=== PATIENT | male | born 1975 | race Caucasian/White ===

== ENCOUNTER 2017-08-19 14:55 | Emergency (ER) | payer OTHER ==
[~2017-08-19] VITALS: Ht 167.6 cm; Wt 92.3 kg
[~2017-08-19 14:55] MED LIST: ARIP1TAB16 PO; CLON1TAB3 PO; DIVA500T5 PO; EPP3/2 IM; HYDR-3126 PO; HYDR-5688 PO; LTHSR/300 PO; NRN600 PO; PARO10TA3 PO; PARO1TAB PO; RANI150T2 PO; WLLSR/200 PO
[2017-08-19 15:22] VITALS: TEMP 36.4; Ht 167.6 cm; Wt 92.3 kg
[2017-08-19 15:29] LABS: BASO % 0.7 %; BASO ABS # 0.07 K/uL (0-0.2); COMPLETE YES; EOS % 6.7 %; HEMATOCRIT 47.8 % (42-52); IG% 0.2 %; LYMPH % 36.7 %; LYMPH ABS # 3.64 K/uL (1.2-3.4); MEAN CELL VOLUME 88.7 fL (80-100); MEAN CORPUSCULAR HEMOGLOBIN 32.7 pg (25-34); MEAN CORPUSCULAR HGB CONC 36.8 g/dl (32-36); MEAN PLATELET VOLUME 10.7 fL (7.4-10.4); MONO % 6.5 %; NEUT % 49.2 %; PLATELET COUNT 212 K/uL (130-400); RED BLOOD COUNT 5.39 M/uL (4.7-6.1); WHITE BLOOD COUNT 9.93 K/uL (4.8-10.8)
[2017-08-19 15:37] LABS: PROTHROMBIN TIME (PATIENT) 10.3 SECONDS (9.0-12.0)
[2017-08-19 15:47] LABS: ALT/SGPT 66 U/L (12-78); AST/SGOT 44 U/L (15-37); BLOOD UREA NITROGEN 6 mg/dl (7-18); CALCIUM 8.7 mg/dl (8.5-10.1); CARBON DIOXIDE 30 mmol/L (21-32); CHLORIDE 100 mmol/L (98-107); CREATININE 1.01 mg/dl (0.60-1.40); GLUCOSE 95 mg/dl (70-99); MAGNESIUM 1.9 mg/dl (1.8-2.4); POTASSIUM 2.9 mmol/L (3.5-5.1); SODIUM 139 mmol/L (136-145)
--- NOTE | 2017-08-19 15:51 | DIAGNOSTIC IMAGING REPORT ---
CHEST ONE VIEW PORTABLE CLINICAL HISTORY: Chest pain. Hypertension. COMPARISON STUDY: 01/02/2011 FINDINGS: The cardiac and mediastinal contours are normal. There is no evidence of focal pulmonary consolidation. There is no evidence of failure. No pleural effusions are visualized.[ There are old left-sided rib fractures. IMPRESSION: No active disease in the chest. Electronically signed by: Wiliam Raman M.D. 08/19/2017 3:49 PM Dictated Date/Time: 08/19/2017 3:49 PM
[2017-08-19 15:52] LABS: ALKALINE PHOSPHATASE 78 U/L (45-117)
[2017-08-19] MEDS ORDERED: HYDR-3983 PO (16:02)
--- NOTE | 2017-08-19 16:07 | DIAGNOSTIC IMAGING REPORT ---
HEAD WITHOUT CONTRAST (CT) CT DOSE: 679.75 mGycm HISTORY: Mental status change htn, otero, dizzy, hx chiari malformation TECHNIQUE: Multiaxial CT images of the head were performed without the use of intravenous contrast. A dose lowering technique was utilized adhering to the principles of ALARA. Comparison: 02/01/2015 Findings: Mild mucosal thickening of the ethmoid sinuses. The calvarium and skull base are intact. The ventricles and sulci are within normal limits. There is no mass, hematoma, midline shift, or acute infarct. Impression: No acute intracranial abnormality. Mild mucosal thickening of the ethmoid sinuses. The above report was generated using voice recognition software. It may contain grammatical, syntax or spelling errors. Electronically signed by: Dick Mohan M.D. 08/19/2017 4:06 PM Dictated Date/Time: 08/19/2017 4:05 PM
[2017-08-19 16:24] LABS: MANUAL MICROSCOPIC REQUIRED? NO; URINE APPEARANCE CLEAR (CLEAR); URINE BILIRUBIN NEG (NEG); URINE COLOR YELLOW; URINE NITRITE NEG (NEG); UROBILINOGEN NEG (NEG)
[2017-08-19 16:39] LABS: REVIEW REQ? NO
[2017-08-19] MEDS ORDERED: POTASSIUM CHLORIDE 10 MEQ TABCR PO STA (16:54)
[2017-08-19] MEDS ORDERED: HYDROCODONE/ACETAMOPHEN 5/325MG TAB PO STA (17:24)
--- NOTE | 2017-08-19 17:50 | EMERGENCY ROOM VISIT NOTE ---
History Report prepared by Rich: Mignon Weber Under the Supervision of: Gema PhelpsO. First contact with patient: 14:57 Stated Complaint: CHEST PAIN/HYPERTENSION History of Present Illness The patient is a 41 year old male who presents to the Emergency Room with complaints of hypertension that began this morning. The patient was being seen for a clinical appointment today, where he was found to have an elevated blood pressure with a systolic pressure of 285. He was sent here for further evaluation of a possible hypertensive crisis, where his blood pressure was determined to be normal. He notes to be experiencing chest pain that he describes as a 6/10 in intensity. The patient states he has been experiencing abnormal headaches and dizziness for the past two weeks. He also states that he has been feeling some chest "pounding" when he lays down. He denies any diarrhea. He states he has a family history of hypertension. He notes that he has been having some urinary issues, which he is being seen by a urologist by. 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 The patient admits to having a history of anxiety for which he is on Klonopin. He experiences chronic pain s/p trauma. The patient also has had previous traumatic brain injury. He notes he is an occasional smoker and chews tobacco. He states that he drinks alcohol each night, between one serving and a half gallon of bourbon. He notes that he has not been drinking as much alcohol recently. The patient notes that he ran out of Gabapentin for two weeks. Source of History: patient Onset: this morning Symptom Intensity: systolic pressure of 285 Timing: resolved Associated Symptoms: + headache, + chest pain, + back pain, + urinary symptoms, No diarrhea Review of Systems See HPI for pertinent positives & negatives. A total of 10 systems reviewed and were otherwise negative. Past Medical & Surgical Medical Problems: (1) ANXIETY STATE NOS (2) CERVICAL SYNDROME NEC (3) DEPRESSIVE DISORDER NEC (4) FAM HX-DIABETES MELLITUS (5) FAM HX-NEUROLOG DIS NEC (6) FAMILY HISTORY OF OTHER CARDIOVASCULAR DISEASES (7) FAMILY HX-CONDITION NEC (8) FAMILY HX-MALIGNANCY NOS (9) LUMBAGO (10) PANIC DISORDER WITHOUT AGORAPHOBIA (11) TOBACCO USE DISORDER Family History Diabetes mellitus FH: cancer FH: gallstones FH: heart disease FH: lung disease Hypertension Kidney disease Kidney stones Seizures Social History Smoking Status: Former Smoker Alcohol Use: none Drug Use: none Marital Status: single Housing Status: lives alone Occupation Status: employed Current/Historical Medications Scheduled Clonazepam (Klonopin), 1 MG PO TID Gabapentin (Gabapentin), 600 MG PO TID Hydrocodone/Acetaminophen 7.5MG/325MG ([place] 7.5MG/325MG), 1 TAB PO QID Hydroxyzine Hcl (Atarax), 50 MG PO TID Paroxetine HCl (Paroxetine), 10 MG PO DAILY Ranitidine HCl (Ranitidine HCl), 150 MG PO BID Scheduled PRN Epinephrine (Epipen), 0.3 MG IM UD PRN for ALLERGIC REACTION Allergies Coded Allergies: BEE STING (Unverified Allergy, Mild, 08/19/17) Zolpidem (Verified Adverse Reaction, Intermediate, "didn't sleep for a week", 08/19/17) Trazodone (Verified Adverse Reaction, Unknown, HALLUCINATIONS,DRUNK FEELING, 08/19/17) Physical Exam Vital Signs Date Time Temp Pulse Resp B/P (MAP) Pulse Ox O2 Delivery O2 Flow Rate FiO2 08/19/17 17:13 82 18 128/93 96 Room Air 08/19/17 16:17 77 18 129/91 95 Room Air 08/19/17 15:22 36.4 85 18 127/91 96 Room Air 08/19/17 15:10 82 Physical Exam GENERAL: alert, well appearing, well nourished, no distress, non-toxic EYE EXAM: normal conjunctiva, PERRL and EOM's grossly intact OROPHARYNX: no exudate, no erythema, lips, buccal mucosa, and tongue normal and mucous membranes are moist NECK: supple, no nuchal rigidity, no adenopathy, non-tender LUNGS: Clear to auscultation. Normal chest wall mechanics HEART: no murmurs, S1 normal and S2 normal ABDOMEN: abdomen soft, non-tender, normo-active bowel sounds, no masses, no rebound or guarding. BACK: Back is symmetrical on inspection and there is no deformity, no midline tenderness, no CVA tenderness. SKIN: no rashes and no bruising UPPER EXTREMITIES: upper extremities are grossly normal. LOWER EXTREMITIES: No pitting edema. Mild deformity left tibia - chronic per patient secondary to trauma. NEURO EXAM: Normal sensorium, cranial nerves II-XII grossly intact, normal speech, no gross weakness of arms, no gross weakness of legs. Medical Decision & Procedures ER Provider Diagnostic Interpretation: Radiology results have been interpreted by the radiologist and reviewed by me. CHEST ONE VIEW PORTABLE CLINICAL HISTORY: Chest pain. Hypertension. COMPARISON STUDY: 01/02/2011 FINDINGS: The cardiac and mediastinal contours are normal. There is no evidence of focal pulmonary consolidation. There is no evidence of failure. No pleural effusions are visualized.[ There are old left-sided rib fractures. IMPRESSION: No active disease in the chest. Electronically signed by: Wiliam Raman M.D. 08/19/2017 3:49 PM HEAD WITHOUT CONTRAST (CT) CT DOSE: 679.75 mGycm HISTORY: Mental status change htn, otero, dizzy, hx chiari malformation TECHNIQUE: Multiaxial CT images of the head were performed without the use of intravenous contrast. A dose lowering technique was utilized adhering to the principles of ALARA. Comparison: 02/01/2015 Findings: Mild mucosal thickening of the ethmoid sinuses. The calvarium and skull base are intact. The ventricles and sulci are within normal limits. There is no mass, hematoma, midline shift, or acute infarct. Impression: No acute intracranial abnormality. Mild mucosal thickening of the ethmoid sinuses. The above report was generated using voice recognition software. It may contain grammatical, syntax or spelling errors. Electronically signed by: Dick Mohan M.D. 08/19/2017 4:06 PM Laboratory Results 08/19/17 14:24 Red Blood Count 5.39, Mean Corpuscular Volume 88.7, Mean Corpuscular Hemoglobin 32.7, Mean Corpuscular Hemoglobin Concent 36.8, Mean Platelet Volume 10.7, Neutrophils (%) (Auto) 49.2, Lymphocytes (%) (Auto) 36.7, Monocytes (%) (Auto) 6.5, Eosinophils (%) (Auto) 6.7, Basophils (%) (Auto) 0.7, Neutrophils # (Auto) 4.88, Lymphocytes # (Auto) 3.64, Monocytes # (Auto) 0.65, Eosinophils # (Auto) 0.67, Basophils # (Auto) 0.07 08/19/17 14:24 Test 08/19/17 14:24 08/19/17 15:35 White Blood Count 9.93 K/uL (4.8-10.8) Red Blood Count 5.39 M/uL (4.7-6.1) Hemoglobin 17.6 g/dL (14.0-18.0) Hematocrit 47.8 % (42-52) Mean Corpuscular Volume 88.7 fL (80-100) Mean Corpuscular Hemoglobin 32.7 pg (25-34) Mean Corpuscular Hemoglobin Concent 36.8 g/dl (32-36) Platelet Count 212 K/uL (130-400) Mean Platelet Volume 10.7 fL (7.4-10.4) Neutrophils (%) (Auto) 49.2 % Lymphocytes (%) (Auto) 36.7 % Monocytes (%) (Auto) 6.5 % Eosinophils (%) (Auto) 6.7 % Basophils (%) (Auto) 0.7 % Neutrophils # (Auto) 4.88 K/uL (1.4-6.5) Lymphocytes # (Auto) 3.64 K/uL (1.2-3.4) Monocytes # (Auto) 0.65 K/uL (0.11-0.59) Eosinophils # (Auto) 0.67 K/uL (0-0.5) Basophils # (Auto) 0.07 K/uL (0-0.2) RDW Standard Deviation 39.6 fL (36.4-46.3) RDW Coefficient of Variation 12.5 % (11.5-14.5) Immature Granulocyte % (Auto) 0.2 % Immature Granulocyte # (Auto) 0.02 K/uL (0.00-0.02) Prothrombin Time 10.3 SECONDS (9.0-12.0) Prothromb Time International Ratio 1.0 (0.9-1.1) Anion Gap 9.0 mmol/L (3-11) Est Creatinine Clear Calc Drug Dose 104.4 ml/min Estimated GFR () 108.1 Estimated GFR (Non- 93.3 BUN/Creatinine Ratio 6.0 (10-20) Calcium Level 8.7 mg/dl (8.5-10.1) Magnesium Level 1.9 mg/dl (1.8-2.4) Total Bilirubin 1.1 mg/dl (0.2-1) Aspartate Amino Transf (AST/SGOT) 44 U/L (15-37) Alanine Aminotransferase (ALT/SGPT) 66 U/L (12-78) Alkaline Phosphatase 78 U/L (45-117) Troponin I < 0.015 ng/ml (0-0.045) Total Protein 7.9 gm/dl (6.4-8.2) Albumin 4.0 gm/dl (3.4-5.0) Globulin 3.9 gm/dl (2.5-4.0) Albumin/Globulin Ratio 1.0 (0.9-2) Urine Color YELLOW Urine Appearance CLEAR (CLEAR) Urine pH 7.0 (4.5-7.5) Urine Specific [place] 1.010 (1.000-1.030) Urine Protein NEG (NEG) Urine Glucose (UA) NEG (NEG) Urine Ketones NEG (NEG) Urine Occult Blood NEG (NEG) Urine Nitrite NEG (NEG) Urine Bilirubin NEG (NEG) Urine Urobilinogen NEG (NEG) Urine Leukocyte Esterase NEG (NEG) Laboratory results per my review. Medications Administered Medications (Trade) Dose Ordered Sig/Pricila Route Start Time Stop Time Status Last Admin Dose Admin Potassium Chloride (Klor-Con M10) 40 meq NOW STAT PO 08/19/17 16:54 08/19/17 16:55 DC 08/19/17 16:54 40 MEQ Acetaminophen/ Hydrocodone Bitart ([place] 5/325 Tab) 1 tab NOW STAT PO 08/19/17 17:24 08/19/17 17:25 DC 08/19/17 17:24 1 TAB ECG Indication: other (Hypertension) Rate (beats per minute): 77 Rhythm: normal sinus Findings: no acute ischemic change, no ectopy, other (Normal axis and intervals ) ED Course 1458: The patient was evaluated in room B2. A complete history and physical exam was performed. 1654: Ordered Klor-Con M10 40meq PO. 1724: Ordered [place] 5/325 PO. 1736: I reevaluated the patient and he was resting comfortably. 1747: Upon reevaluation, the patient is feeling better. I discussed the findings and the treatment plan with the patient. He verbalizes agreement and understanding. The patient was discharged home. Medical Decision Differential diagnosis: Etiologies such as benign hypertension, hypertensive emergency, cardiovascular pathology, pheochromocytoma, electrolyte abnormality, renal disease, endorgan damage, as well as others were entertained. Medication Reconcilliation Current Medication List: was personally reviewed by me Blood Pressure Screening Patient's blood pressure: Normal blood pressure Blood pressure disposition: Did not require urgent referral Impression Primary Impression: Hypertension Scribe Attestation The scribe's documentation has been prepared under my direction and personally reviewed by me in its entirety. I confirm that the note above accurately reflects all work, treatment, procedures, and medical decision making performed by me. Departure Information Dispostion Home / Self-Care Referrals Lio Brown D.O. (PCP) Additional Instructions Please continue your normal medications as prescribed. Please consider checking your blood pressure when you are in stores and keeping your own log. Please follow-up with your family doctor. If you have any BP readings greater than 180/100, develop chest pain, headaches, dizziness, vomiting, vision changes , trouble breathing, numbness/tingling, or you have any other new concerns, please return to the emergency room. Problem Qualifiers Primary Impression: Hypertension Hypertension type: unspecified Qualified Codes: I10 - Essential (primary) hypertension
[2017-08-19 18:15] VITALS: BP 136/98; PULSE 75; O2SAT 98
[2017-08-19 19:36] LABS: ZZUR CULT IF INDIC CLEAN CATCH NO
== END 2017-08-19 18:15 | disposition home or self-care (01) ==
LOC: EDBD 14:55 → C.EDB 14:57
DX: I10 Essential (primary) hypertension (principal); F41.0 Panic disorder [episodic paroxysmal anxiety]; Z79.899 Other long term (current) drug therapy; G89.29 Other chronic pain; M53.1 Cervicobrachial syndrome; F17.210 Nicotine dependence, cigarettes, uncomplicated; F17.220 Nicotine dependence, chewing tobacco, uncomplicated; Z87.820 Personal history of traumatic brain injury; F32.9 Major depressive disorder, single episode, unspecified; Z82.49 Family history of ischemic heart disease and other diseases of the circulatory system; Z83.3 Family history of diabetes mellitus; Z82.0 Family history of epilepsy and other diseases of the nervous system; Z80.9 Family history of malignant neoplasm, unspecified; Z84.1 Family history of disorders of kidney and ureter

== ENCOUNTER 2025-08-15 21:07 | Inpatient (IN) ==
--- NOTE | 2025-08-15 21:20 | Emergency Department Note ---
Impression & Plan Alcoholic intoxication, Transaminitis, Passive suicidal ideations ED Provider Note ED Provider Note NAME: EULALIA SIMMONS III AGE:49 SEX: Unknown/Undifferentiated : 1975 ARRIVES VIA: EMS INFORMANT: Patient ED PROVIDER(s): Reno Knowles CHIEF COMPLAINT: Suicidal ideations HPI: 49-year-old male presents emergency room with complaints of suicidal ideation. Patient states that he has been having thoughts of killing himself. States that his mother told him that he should kill himself today. States that he has been drinking alcohol and feels like everything is just going in the wrong direction and making him feel like his only option is to kill himself. PAST MEDICAL HISTORY:See Below PAST SURGICAL HISTORY:See Below FAMILY HISTORY:See Below SOCIAL HISTORY:See Below HOME MEDICATIONS:See Below ALLERGIES:See Below VITALS:See Below PHYSICAL EXAMINATION: GENERAL: alert, well appearing, well nourished, no distress, non-toxic NECK: supple, no nuchal rigidity, no adenopathy, non-tender LUNGS: Clear to auscultation. Normal chest wall mechanics, no w/r/r HEART: no murmurs, S1 normal and S2 normal ABDOMEN: abdomen soft, non-tender, normo-active bowel sounds, no masses, no rebound or guarding. BACK: Back is symmetrical on inspection and there is no deformity, no midline tenderness, no CVA tenderness. SKIN: no rashes, petechiae, orbruising UPPER EXTREMITIES: upper extremities are grossly normal. FROM, nml pulses b/l. LOWER EXTREMITIES: No pitting edema. FROM, nml pulses b/l. NEURO EXAM: Normal sensorium, Alert and oriented x 3. PSYCH: smiling and making good eye contact Vital Signs: reviewed and remarkable Differential Diagnosis: Mood disorder, infection, hypoglycemia, electrolyte abnormalities, cardiac sources, intracerebral event, toxicologic, trauma, neurologic, as well as other pathologies. MEDICAL DECISION MAKIN-year-old male presents emergency room with complaints of suicidal ideation. Patient's alcohol is over 300. He states that he has some pretty severe withdrawal symptoms with regards to tremors and shaking. He denies any history of alcohol withdrawal seizures. Psychiatric team spoke with us and asked that we admit him medically for his alcohol abuse. Spoke with hospitalist, they will admit. Spoke with patient, he is agreeable. Consultation(s): Hospitalist ER Treatment Provided: See below Diagnostics Interpreted By Me: -Laboratory studies: As stated above and show below. Triage Nursing Note Reviewed Prior/Outside Records Reviewed Past Med/Surg History Problem List (Updated 08/15/25 @ 23:10 by Maame Knowles DO) Passive suicidal ideations (Acute) Transaminitis (Acute) Alcoholic intoxication (Acute) Anxiety (Acute) Left corneal abrasion (Acute) Left corneal abrasion (Acute) Sinusitis (Acute) Throat pain (Acute) Social History Smoking Status: Former smoker Preferred Language: [place] Feels Safe at Home: No Allergies Allergies Allergy/AdvReac Type Severity Reaction Status Date / Time bee venom protein (honey bee) Allergy Mild Unverified 08/19/17 16:02 zolpidem AdvReac Intermediate "didn't Verified 08/19/17 16:02 sleep for a week" trazodone AdvReac Unknown HALLUCINATIONS,DRUNK Verified 08/19/17 16:02 FEELING Home Meds Home Medications Medication Instructions Recorded Confirmed EPINEPHRINE (EPIPEN) 0.3 mg IM UD PRN ALLERGIC REACTION 02/01/15 08/15/25 ##0 omeprazole 0 mg PO DAILY 08/15/25 08/15/25 Results & Data (ED) Vital Signs Vital Signs - 24 hr 08/15/25 22:17 Temperature 36.8 C Temperature Source Oral Pulse Rate 137 H Respiratory Rate 20 Respiratory Effort / Characteristics Non-Labored Spontaneous Respiratory Depth Normal Respiratory Pattern Regular Blood Pressure 147/95 H Blood Pressure Mean 112 Pulse Oximetry 98 Oxygen Delivery Method Room Air Sepsis Recent Fever Within 48 Hours No Sepsis New/Unexplained Change in Mental Status No Sepsis Action Taken by Nursing No Action Required Laboratory Data 08/15/25 21:25 08/15/25 21:25 Lab Results 08/15/25 Range/Units 21:25 WBC 8.66 (4.8-10.8) K/ul RBC 5.83 (4.70-6.10) M/uL Hgb 19.6 H (14.0-18.0) g/dL Hct 53.6 H (42.0-52.0) % MCV 91.9 (80.0-100.0) fL MCH 33.6 (25.0-34.0) pg MCHC 36.6 H (32.0-36.0) g/dL RDW Std Deviation 41.2 (36.4-46.3) fL RDW Coeff of [place] 12.2 (11.5-14.5) % Plt Count 218 (130-400) K/uL MPV 8.8 L (9.4-12.4) fL Immature Gran % (Auto) 0.2 % Neut % (Auto) 45.4 % Lymph % (Auto) 38.7 % [place] % (Auto) 11.9 % Eos % (Auto) 2.0 % Baso % (Auto) 1.8 % Neut # (Auto) 3.93 (1.40-6.50) K/uL Lymph # (Auto) 3.35 (1.20-3.40) K/uL [place] # (Auto) 1.03 H (0.11-0.59) K/uL Eos # (Auto) 0.17 (0.00-0.50) K/uL Baso # (Auto) 0.16 (0.00-0.20) K/uL Immature Gran # (Auto) 0.02 (0.01-0.20) K/uL Sodium 140 (136-145) mmol/L Potassium 4.3 (3.5-5.1) mmol/L Chloride 101 (98-107) mmol/L Carbon Dioxide 29 (21-32) mmol/L Anion Gap 10 (3-11) BUN 5 L (6-23) mg/dl Creatinine 0.89 (0.6-1.4) mg/dl Est Cr Clr Drug Dosing Not Reportable eGFR 106.37 BUN/Creatinine Ratio 5.6 L (10-20) Glucose 150 H (70-99(Fasting)) mg/dl Calcium 9.4 (8.6-10.3) mg/dl Total Bilirubin 1.3 H (0.2-1.0) mg/dl AST 114 H (13-39) U/L ALT 59 H (7-52) U/L Alkaline Phosphatase 101 (34-104) U/L Total Protein 8.6 H (6.0-8.3) gm/dl Albumin 4.5 (3.4-5.0) gm/dl Globulin 4.1 H (2.5-4.0) gm/dl Albumin/Globulin Ratio 1.1 (0.9-2) TSH 1.116 (0.300-4.500) uIu/ml Urine Color Dark Yellow Urine Appearance Clear (Clear) Urine pH 6.0 (4.5-7.5) Ur Specific [place] 1.012 (1.000-1.030) Urine Protein 3+ H (Negative) Urine Glucose (UA) Negative (Negative) Urine Ketones Trace H (Negative) Urine Blood Negative (Negative) Urine Nitrite Negative (Negative) Urine Bilirubin Negative (Negative) Urine Urobilinogen Negative (Negative) Ur Leukocyte Esterase Trace H (Negative) Urine WBC (Auto) 0-5 (0-5) /hpf Urine RBC (Auto) 0-2 (0-2) /hpf U Hyaline Cast (Auto) >20 H (0-2) /lpf U Epithel Cells (Auto) 6-10 H (0-2) /hpf Urine Bacteria (Auto) None Seen (None Seen) Hyaline Casts Present A (None Presnt) /lpf Granular Casts Present A (None Prsent) /lpf Urine Mucus Present A (None Prsent) Urine Comment Salicylates < 3.0 L (3.0-30) mg/dl Urine Opiates Screen Neg (Neg) Ur Methadone, Qual Neg (Neg) Urine Fentanyl Screen Neg (Neg) Acetaminophen < 3 L (10-30) ug/ml Urine Barbiturates Neg (Neg) Ur Phencyclidine (PCP) Neg (Neg) U Amphetamin/Meth Scrn Neg (Neg) MDMA (Ecstasy) Screen Neg (Neg) U Benzodiazepines Scrn Neg (Neg) Ur Cocaine Metabolite Neg (Neg) U Marijuana (THC) Screen Neg (Neg) Ethyl Alcohol mg/dL 338.2 H (<10.0) mg/dl Discharge Plan Visit Data Chief Complaint: Mental Health Evaluation Stated Complaint: 201 ED Provider: Maame Knowles Discharge Problem: Alcoholic intoxication, Transaminitis, Passive suicidal ideations Patient Disposition: Admitted As Inpatient Condition: Good Forms Stand Alone Forms: My [facility], Suicide Prevention Resources Prescriptions Prescriptions: No Action EPINEPHRINE (EPIPEN) 0.3 MG/0.3 ML INJECTION 0.3 mg IM UD PRN (Reason: ALLERGIC REACTION) Qty: 0 Rx Instructions: omeprazole 0 mg PO DAILY Referrals Referrals: PCP,NO [Primary Care Provider] -
[2025-08-15 22:02] LABS: Hematocrit (blood only) 53.6 % (42.0-52.0); Hemoglobin 19.6 g/dL (14.0-18.0); Immature Granulocytes # (auto) 0.02 K/uL (0.01-0.20); Immature Granulocytes % (auto) 0.2 %; Mean Corpuscular Hemoglobin 33.6 pg (25.0-34.0); Mean Corpuscular Volume 91.9 fL (80.0-100.0); Platelet Count 218 K/uL (130-400); RDW Standard Deviation 41.2 fL (36.4-46.3); Red Blood Count 5.83 M/uL (4.70-6.10); White Blood Count 8.66 K/ul (4.8-10.8)
[2025-08-15 22:10] LABS: Alanine Aminotransferase 59 U/L (7-52); Albumin Globulin Ratio 1.1 (0.9-2); Albumin Level 4.5 gm/dl (3.4-5.0); Alkaline Phosphatase 101 U/L (34-104); Anion Gap 10 (3-11); Bilirubin,Total 1.3 mg/dl (0.2-1.0); Blood Urea Nitrogen 5 mg/dl (6-23); Calcium 9.4 mg/dl (8.6-10.3); Carbon Dioxide 29 mmol/L (21-32); Chloride 101 mmol/L (98-107); Globulin 4.1 gm/dl (2.5-4.0); Glucose 150 mg/dl (70-99(Fasting)); Potassium 4.3 mmol/L (3.5-5.1); Sodium 140 mmol/L (136-145); Total Protein 8.6 gm/dl (6.0-8.3)
[2025-08-15 22:25] LABS: Thyroid Stimulating Hormone 1.116 uIu/ml (0.300-4.500)
[2025-08-15 22:29] LABS: Appearance Urine Clear (Clear); Bacteria Urine Automated None Seen (None Seen); Cast Urine Automated >20 /lpf (0-2); Glucose Urine UA Negative (Negative); RBC Urine Automated 0-2 /hpf (0-2); WBC Urine Automated 0-5 /hpf (0-5)
[2025-08-15 22:35] LABS: Acetaminophen < 3 ug/ml (10-30); Salicylate < 3.0 mg/dl (3.0-30)
[2025-08-15 22:56] LABS: Amphetamines+Metham, Urine Neg (Neg); MDMA (Ecstacy), Urine Neg (Neg); Marijuana, Urine Neg (Neg)
--- NOTE | 2025-08-15 23:07 | History & Physical Report ---
Date of Service August 15, 2025 Assessment & Plan (1) Suicidal ideations: Plan: Assessment and plan below following discussion of case with ED provider and reviewing patient history/pertinent normal/abnormal diagnostic test results. Suicidality History mood disorder, medication noncompliance Alcohol abuse, no prior history of alcohol withdrawal seizures as per patient hypertension, slightly elevated, patient noncompliant with previous amlodipine home Rx history of traumatic brain injury Worsening neck pain, history cervical myelopathy status post surgery ([facility] [place], 10/2024) Alcoholic hepatitis, history of hepatic steatosis as per outpatient records, likely good prognosis on Maddrey's DF score given normal coags GERD, on home PPI Noncalcified pulmonary nodules on outpatient imaging from 2018 Hyperglycemia rule out DM past tobacco abuse Admit to PCU given tachycardia Clonidine 1 dose now SANJUANA S, DT precautions Resume amlodipine in a.m. Psych consult re: suicidality One-to-one, suicide precautions until evaluated by service CT cervical spine worsening neck pain, history of surgery May benefit from specialist evaluation inpatient Outpatient chest CT for pulmonary nodules on follow-up with PCP Check hemoglobin A1c DVT prophylaxis. SCDs for now until CT cervical spine resulted Full code Patient request for her sister to be given updates regarding care. Ms. Catarina Vogel, contact #[phone]. Text document was generated using [employer] voice recognition software. It may contain grammatical or spelling errors. Kindly contact undersigned for clarification of any documentation item in question. History of Present Illness Chief Complaint: Suicidality as per records Primary Care Provider: NO PCP History obtained from patient and records. Medical history significant for hypertension, history of traumatic brain injury, cervical myelopathy status post surgery ([facility] [place], 2024), GERD, anxiety/mood disorder, alcohol abuse, pulmonary nodules, past tobacco abuse, medication noncompliance. Patient communicated self-harm intent to a friend today. Police called to check on patient. Patient brought to ER for evaluation. Denies chest pain, SOB, abdominal pain. Worsening neck pain over the last 6 months after surgery at [facility] [place] last October,. Achy neck pain radiating to both arms. Patient denies weakness, fever, chills. No bowel or bladder incontinence. Patient stopped taking blood pressure and mood medications a few years ago because he was worried about side effects. 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 Allergies Allergy/AdvReac Type Severity Reaction Status Date / Time bee venom protein (honey bee) Allergy Mild Unverified 08/19/17 16:02 zolpidem AdvReac Intermediate "didn't Verified 08/19/17 16:02 sleep for a week" trazodone AdvReac Unknown HALLUCINATIONS,DRUNK Verified 08/19/17 16:02 FEELING Home Medications Medication Instructions Recorded Confirmed Type EPINEPHRINE (EPIPEN) 0.3 mg IM UD PRN ALLERGIC REACTION 02/01/15 08/15/25 History ##0 omeprazole 0 mg PO DAILY 08/15/25 08/15/25 History Past Med/Surg History Problem List (Updated 08/16/25 @ 00:19 by Alex Michael MD) Suicidal ideations Passive suicidal ideations (Acute) Transaminitis (Acute) Alcoholic intoxication (Acute) Anxiety (Acute) Left corneal abrasion (Acute) Left corneal abrasion (Acute) Sinusitis (Acute) Throat pain (Acute) Social History Smoking Status: Former smoker Preferred Language: Romansh Feels Safe at Home: No Review of Systems Review of Systems: As per HPI, all other systems reviewed and negative Physical Exam Physical Exam: GENERAL: Anxious, restless, looks older than stated age, no respiratory distress SKIN: Normal color, multiple tattoos, warm HEENT: Partial alopecia, pink palpebral conjunctivae, no ptosis, dry buccal mucosa NECK : Some limitation in range of motion, cervical tenderness CHEST : CTA, no tenderness HEART : Tachycardic, no obvious murmurs ABDOMEN: Some distention, nontender EXTREMITIES : No LE swelling/tenderness, palpable pulses, no other conspicuous deformities noted NEUROLOGIC : Coherent, no facial asymmetry, no other gross focality Results & Data Results & Data Vital Signs (Past 12 Hours) Vital Signs Temp Pulse Resp BP Pulse Ox O2 Del Method 08/15/25 22:17 36.8 C 137 H 20 147/95 H 98 Room Air Laboratory Results Laboratory Results WBC 8.66 K/ul (4.8-10.8) 08/15/25 21:25 RBC 5.83 M/uL (4.70-6.10) 08/15/25 21:25 Hgb 19.6 g/dL (14.0-18.0) H 08/15/25: Hct 53.6 % (42.0-52.0) H 08/15/25: MCV 91.9 fL (80.0-100.0) 08/15/25: MCH 33.6 pg (25.0-34.0) 08/15/25: MCHC 36.6 g/dL (32.0-36.0) H 08/15/25 RDW Std Deviation 41.2 fL (36.4-46.3) 08/15/25 RDW Coeff of Makenzie 12.2 % (11.5-14.5) 08/15/25 Plt Count 218 K/uL (130-400) 08/15/25 MPV 8.8 fL (9.4-12.4) L 08/15/25: Immature Gran % (Auto) 0.2 % 08/15/25 Neut % (Auto) 45.4 % 08/15/25: Lymph % (Auto) 38.7 % 08/15/25: [place] % (Auto) 11.9 % 08/15/25: Eos % (Auto) 2.0 % 08/15/25 Baso % (Auto) 1.8 % 08/15/25 Neut # (Auto) 3.93 K/uL (1.40-6.50) 08/15/25 Lymph # (Auto) 3.35 K/uL (1.20-3.40) 08/15/25: [place] # (Auto) 1.03 K/uL (0.11-0.59) H 08/15/25: Eos # (Auto) 0.17 K/uL (0.00-0.50) 08/15/25: Baso # (Auto) 0.16 K/uL (0.00-0.20) 08/15/25 Immature Gran # (Auto) 0.02 K/uL (0.01-0.20) 08/15/25: Sodium 140 mmol/L (136-145) 08/15/25: Potassium 4.3 mmol/L (3.5-5.1) 08/15/25: Chloride 101 mmol/L (98-107) 08/15/25: Carbon Dioxide 29 mmol/L (21-32) 08/15/25: Anion Gap 10 (3-11) 08/15/25: BUN 5 mg/dl (6-23) L 08/15/25: Creatinine 0.89 mg/dl (0.6-1.4) 08/15/25: Est Cr Clr Drug Dosing Not Reportable 08/15/25 eGFR 106.37 08/15/25 BUN/Creatinine Ratio 5.6 (10-20) L 08/15/25: Glucose 150 mg/dl (70-99(Fasting)) H 08/15/25: Calcium 9.4 mg/dl (8.6-10.3) 08/15/25: Total Bilirubin 1.3 mg/dl (0.2-1.0) H 08/15/25: AST 114 U/L (13-39) H 08/15/25: ALT 59 U/L (7-52) H 08/15/25: Alkaline Phosphatase 101 U/L (34-104) 08/15/25 Total Protein 8.6 gm/dl (6.0-8.3) H 08/15/25: Albumin 4.5 gm/dl (3.4-5.0) 08/15/25 Globulin 4.1 gm/dl (2.5-4.0) H 08/15/25: Albumin/Globulin Ratio 1.1 (0.9-2) 08/15/25: TSH 1.116 uIu/ml (0.300-4.500) 08/15/25: Urine Color Dark Yellow 08/15/25 Urine Appearance Clear (Clear) 08/15/25: Urine pH 6.0 (4.5-7.5) 08/15/25: Ur Specific [place] 1.012 (1.000-1.030) 08/15/25: Urine Protein 3+ (Negative) H 11/16/25 21:25 Urine Glucose (UA) Negative (Negative) 08/15/25 21:25 Urine Ketones Trace (Negative) H 08/15/25 21:25 Urine Blood Negative (Negative) 08/15/25 21: Urine Nitrite Negative (Negative) 08/15/25 21:25 Urine Bilirubin Negative (Negative) 08/15/25 21:25 Urine Urobilinogen Negative (Negative) 08/15/25 21:25 Ur Leukocyte Esterase Trace (Negative) H 08/15/25 21:25 Urine WBC (Auto) 0-5 /hpf (0-5) 08/15/25 21:25 Urine RBC (Auto) 0-2 /hpf (0-2) 08/15/25 21: U Hyaline Cast (Auto) >20 /lpf (0-2) H 08/15/25 21:25 U Epithel Cells (Auto) 6-10 /hpf (0-2) H 08/15/25 21:25 Urine Bacteria (Auto) None Seen (None Seen) 08/15/25 21: Hyaline Casts Present /lpf (None Presnt) A 08/15/25 21: Granular Casts Present /lpf (None Prsent) A 08/15/25 21:25 Urine Mucus Present (None Prsent) A 08/15/25 21:25 Urine Comment 08/15/25 21:25 Salicylates < 3.0 mg/dl (3.0-30) L 08/15/25 21:25 Urine Opiates Screen Neg (Neg) 08/15/25 21:25 Ur Methadone, Qual Neg (Neg) 08/15/25 21:25 Urine Fentanyl Screen Neg (Neg) 08/15/25 21:25 Acetaminophen < 3 ug/ml (10-30) L 08/15/25 21:25 Urine Barbiturates Neg (Neg) 08/15/25 21:25 Ur Phencyclidine (PCP) Neg (Neg) 08/15/25 21:25 U Amphetamin/Meth Scrn Neg (Neg) 08/15/25 21:25 MDMA (Ecstasy) Screen Neg (Neg) 08/15/25 21:25 U Benzodiazepines Scrn Neg (Neg) 08/15/25 21:25 Ur Cocaine Metabolite Neg (Neg) 08/15/25 21:25 U Marijuana (THC) Screen Neg (Neg) 08/15/25 21:25 Ethyl Alcohol mg/dL 338.2 mg/dl (<10.0) H 08/15/25 21:25 Diagnostic Findings EKG as per my interpretation :Rate 125, sinus tachycardia, normal axis, no ischemia
[2025-08-15 23:20] LABS: Magnesium 2.4 mg/dl (1.7-2.4)
[2025-08-15 23:39] LABS: INR 1.1 (0.9-1.1); Prothrombin Time 11.4 Seconds (9.0-12.0)
[2025-08-15] MEDS ORDERED: PROMETHAZINE 6.25 MG/50.25 ML BAG IV PRN (23:50)
[2025-08-15] MEDS ORDERED: ACETAMINOPHEN 500 MG TAB PO PRN (23:50)
[2025-08-15] MEDS ORDERED: LORazepam Inj 3 MG in SYRINGE 1.5 ML IV PRN (23:51)
[2025-08-15] MEDS ORDERED: LORazepam Inj 2 MG in SYRINGE 1 ML IV PRN (23:51)
[2025-08-16] MEDS: THIAMINE HCL 100 MG in SYRINGE 9 ML IV STA (00:19)
[2025-08-16] MEDS: LACTATED RINGER'S 1,000 ML IV STA (00:57)
--- NOTE | 2025-08-16 01:09 | CT Scan Report ---
EXAM: CT cervical spine wo con CLINICAL HISTORY: pain TECHNIQUE: Computed tomography of the cervical spine performed without intravenous contrast. Contiguous axial images were obtained from the skull base to T2, with sagittal and coronal reformatted images reconstructed from the axial data. CT scan was performed according to ALARA (as low as reasonably achievable). COMPARISON: none FINDINGS: Loss of cervical lordotic curvature. Posterior disc osteophyte at C3/C4 level causing bilateral moderate neural foraminal narrowing. Prosthetic discs at C5/C6 and C6/C7 levels. Posterior osteophytes at C5/C6 and C6/C7 levels indenting anterior thecal sac.No neural foraminal narrowing. Cervical vertebral bodies are normal in height and alignment, with no evidence of fracture or subluxation. Lateral masses of C1 are symmetrical, and the dens is intact. Prevertebral soft tissues are not widened. The remaining suprahyoid and infrahyoid soft tissues in the neck are unremarkable. Thyroid gland appears unremarkable. IMPRESSION: 1. No acute fracture or subluxation in the cervical spine. 2. Loss of cervical lordosis- likely due to paraspinal muscle spasm . 3. Cervical spondylosis. Electronically signed by Bob Alejandro 08-16-2025 01:08 AM
[2025-08-16] MEDS: LORazepam 0.5 MG TAB PO PRN (04:54)
--- NOTE | 2025-08-16 04:55 | Magnetic Resonance Report ---
EXAM: MR cervical spine wo con CLINICAL HISTORY: worsening neck pain TECHNIQUE: Multiplanar multiecho MRI sequences of the cervical spine without contrast were obtained and submitted for diagnostic interpretation. Additional sagittal oblique views were taken. COMPARISON: Prior CT dated 08/14/2025 was reviewed. FINDINGS: Vertebral Alignment: Mild ventral slippage of C2 over C3 vertebra. Straightening of the cervical curvature. No evidence of fracture or subluxation. Vertebral Bodies and Intervertebral Discs: Evidence of bone marrow edema of the opposing end plates of C6-7 elicting low SI on T1, high SI on T2WI and STIR. This could represent Degenerative Modic changes type I; however possibility of associated infective/inflammatory process could not be ruled out. Diffuse spondylodegenerative changes of the cervical spine denoted by marginal osteophytosis, MODIC II degeneration of the opposing vertebral end plate of C5-6. Reduced height and bright T2 signal of the scanned discs denoting their degeneration. Anterior approach discectomy with disc spacer insertion at C5-C6 and C6-C7 intervertebral disc. No prothesis migration of collections. [id number] analysis: C2-C3: There is no focal disc pathology, spinal canal stenosis, or neural foraminal stenosis. No cord or nerve root compression. C3-C4: Bi posterolateral disc protrusions with related bone hypertrophy measuring on the right 6.3 mm and on the left 5.4mm, causing no cord compression yet with moderate bilateral, more right neural foraminal stenosis and compression of traversing nerves. C4-C5: A wide base central and left paracentral posterior disc protrusion(with left cranial migration) with related bone hypertrophy seen mildly indenting the cord, encroaching on tranversing nerves and causing mild left preforaminal/foraminal stenosis. No spinal canal stenosis. C5-C6: A wide base central and right paracentral posterior disc protrusion with related bone hypertrophy measuring about 4.4 mm on top of an asymmetric diffuse disc bulge seen indenting the cord, compressing traversing nerves, and causing bilateral neural foraminal stenosis. C6-C7: Asymmetric diffuse disc bulge with related bone hypertrophy measuring about 3.3 mm, seen mildly compressing the cord, as well as traversing nerves, and causing mild bilateral neural foraminal stenosis. C7-T1: There is no focal disc pathology, spinal canal stenosis, or neural foraminal stenosis. No cord or nerve root compression. Spinal Cord: Focal cord attenuation and right eccentric malacia opposite the C5-C6 level, termed by volume loss and by high intra-medullary T2 signals. The thoracic region shows no significant disc pathology. No exiting nerve root or spinal cord compression. Normal morphology of the ligamentum flava. No arthropathy of the uncovertebral and zygapophyseal joints. No significant spinal canal and neural foraminal stenosis. Soft Tissues: Paraspinal soft tissues appear normal without evidence of abnormal signal intensity or mass lesions. Mild atlanto-axial osteoarthritic changes. IMPRESSION: 1. Anterior approach discectomy with disc spacer insertion at C5-C6 and C6-C7 intervertebral discs. 2. 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 3. Cervical spondylosis, disc pathologies causing mild cord compression and neural foraminal stenosis, as described. 4. Evidence of bone marrow edema of the opposing end plates of C6-7, this could represent Degenerative Modic changes type I, however possibility of associated infective/inflammtory process could not be ruled out.Correlate clinically 5. First-degree degenerative spondylolithesis of the C2 vertebra 6. Mild atlanto-axial osteoarthritic changes. Electronically signed by Robbie Omalley 08-16-2025 04:55 AM
[2025-08-16 07:54] LABS: Alanine Aminotransferase 45 U/L (7-52); Albumin Globulin Ratio 1.4 (0.9-2); Albumin Level 4.1 gm/dl (3.4-5.0); Alkaline Phosphatase 75 U/L (34-104); Anion Gap 12 (3-11); Bilirubin,Total 1.4 mg/dl (0.2-1.0); Blood Urea Nitrogen 5 mg/dl (6-23); Calcium 8.8 mg/dl (8.6-10.3); Carbon Dioxide 24 mmol/L (21-32); Chloride 103 mmol/L (98-107); Creatinine Clr Calc Pharmacy 128.1 ml/min; Globulin 2.9 gm/dl (2.5-4.0); Glucose 86 mg/dl (70-99(Fasting)); Potassium 3.6 mmol/L (3.5-5.1); Sodium 139 mmol/L (136-145); Total Protein 7.0 gm/dl (6.0-8.3)
[2025-08-16 08:29] LABS: Hematocrit (blood only) 49.0 % (42.0-52.0); Hemoglobin 18.0 g/dL (14.0-18.0); Mean Corpuscular Hemoglobin 33.3 pg (25.0-34.0); Mean Corpuscular Volume 90.7 fL (80.0-100.0); Platelet Count 180 K/uL (130-400); RDW Standard Deviation 40.1 fL (36.4-46.3); Red Blood Count 5.40 M/uL (4.70-6.10); White Blood Count 10.70 K/ul (4.8-10.8)
[2025-08-16 08:37] LABS: Hemoglobin A1C 4.5 % (4.5-5.6)
[2025-08-16] MEDS: THIAMINE HCL 100 MG TAB PO SCH (09:01)
[2025-08-16] MEDS: MULTIVITAMIN TAB PO SCH (09:01)
[2025-08-16] MEDS: FOLIC ACID 1 MG TAB PO SCH (09:01)
--- NOTE | 2025-08-16 11:08 | Orthopedic Consultation ---
Date of Service August 16, 2025 Assessment & Plan (1) Status post cervical discectomy: (2) Neck pain with history of cervical spinal surgery: Plan * Case/imaging reviewed and discussed with Dr Ramirez * Recommend continued workup for possible discitis/osteomyelitis of the cervical spine, MRI with contrast pending. * Otherwise recommend conservative measures for pain control including NSAIDs, ice, PT/OT for mobilization * No surgical intervention indicated at this time * Weight bearing status: Activity as tolerated * Daily treatment: Physical Therapy/ Occupational Therapy per protocol * Pain control * Disposition: TBD * Remainder care per primary team * Will follow and update plan following MRI History of Present Illness Reason for Consultation: neck pain, abnormal MRI Requesting Physician: . Attending Physician: Andi Castellanos DO .Patient is a 49 y/o male with chronic neck pain. PMH including hypertension, history of traumatic brain injury, cervical myelopathy status post surgery ([facility] [place], [place], 2024), GERD, anxiety/mood disorder, alcohol abuse, pulmonary nodules, past tobacco abuse, medication noncompliance. Presents to hospital with suicidal ideations. During admission patient reported worsening acute on chronic neck and right shoulder pain. H/o C5-7 discectomy earlier this year at [facility] [place] [place]. 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 Orthopedics consulted for management recommendations. At time of exam patient sitting upright in bed, no acute distress. Reports constant aching pain of the base of the neck and sometimes into right shoulder blade. Denies weakness of b/l UE, tingling/numbness of b/l UE. No new falls or trauma noted. Allergies Allergy/AdvReac Type Severity Reaction Status Date / Time bee venom protein (honey bee) Allergy Mild Unverified 08/19/17 16:02 zolpidem AdvReac Intermediate "didn't Verified 08/19/17 16:02 sleep for a week" trazodone AdvReac Unknown HALLUCINATIONS,DRUNK Verified 08/19/17 16:02 FEELING Home Medications Medication Instructions Recorded Confirmed Type EPINEPHRINE (EPIPEN) 0.3 mg IM UD PRN ALLERGIC REACTION 02/01/15 08/15/25 History ##0 omeprazole 0 mg PO DAILY 08/15/25 08/15/25 History Past Med/Surg History Problem List (Updated 08/16/25 @ 11:06 by Uzair Stauffer PA-C) Neck pain with history of cervical spinal surgery Status post cervical discectomy Suicidal ideations Passive suicidal ideations (Acute) Transaminitis (Acute) Alcoholic intoxication (Acute) Anxiety (Acute) Left corneal abrasion (Acute) Left corneal abrasion (Acute) Sinusitis (Acute) Throat pain (Acute) Social History Smoking Status: Never smoker Hx Alcohol Use: Yes Alcohol type: beer Hx Substance Use: No Preferred Language: [place] [employer] Clown Required: No Beliefs That Will Affect Care: None Current Living Situation: Alone, Parent and Family Feels Safe at Home: No Is there a partner from a previous relationship who is making you feel unsafe now?: No Any Concerns about Your Family Situation: Yes Would You Like to Speak to Someone About Your Situation: Yes Safety Concerns: Feels Safe At This Time Assistive Devices: None Review of Systems All systems reviewed & are unremarkable except as noted in HPI & below. Physical Exam . * General: Alert and oriented, no acute distress * Constitutional: well-developed, well-nourished. * Respiratory: Normal respiratory effort, no distress * Gastrointestinal: No tenderness to palpation, no rigidity or guarding. * Skin: No rash or lesion. * Neurologic: Grossly normal * Musculoskeletal: Well-healed surgical incision. Otherwise cervical spine region without obvious deformity or overlying skin changes. Minimal tenderness at the base of the neck approximately C5-C7 region, otherwise no tenderness b/l UE. Neck ROM with minimal pain. AROM b/l shoulder flexion, elbow flexion/extension, wrist flexion/extension intact. Strength 5/5 bilaterally. Sensation intact radial/median/ulnar nerve distributions. Brisk capillary refill. Results & Data Results & Data Laboratory Results . 08/16/25 08/15/25 06:37 21:25 WBC 10.70 8.66 RBC 5.40 5.83 Hgb 18.0 19.6 H Hct 49.0 53.6 H MCV 90.7 91.9 MCH 33.3 33.6 MCHC 36.7 H 36.6 H RDW Std Deviation 40.1 41.2 RDW Coeff of Makenzie 12.1 12.2 Plt Count 180 218 MPV 8.8 L 8.8 L Immature Gran % (Auto) 0.2 Neut % (Auto) 45.4 Lymph % (Auto) 38.7 Vance % (Auto) 11.9 Eos % (Auto) 2.0 Baso % (Auto) 1.8 Neut # (Auto) 3.93 Lymph # (Auto) 3.35 Vance # (Auto) 1.03 H Eos # (Auto) 0.17 Baso # (Auto) 0.16 Immature Gran # (Auto) 0.02 ESR 4 PT 11.4 INR 1.1 Sodium 139 140 Potassium 3.6 4.3 Chloride 103 101 Carbon Dioxide 24 29 Anion Gap 12 H 10 BUN 5 L 5 L Creatinine 0.71 0.89 Est Cr Clr Drug Dosing 128.1 Not Reportable eGFR 113.88 106.37 BUN/Creatinine Ratio 7.0 L 5.6 L Glucose 86 150 H Estimat Average Glucose 82 Hemoglobin A1c 4.5 Calcium 8.8 9.4 Magnesium 2.4 Total Bilirubin 1.4 H 1.3 H AST 78 H 114 H ALT 45 59 H Alkaline Phosphatase 75 101 C-Reactive Protein < 0.50 Total Protein 7.0 8.6 H Albumin 4.1 4.5 Globulin 2.9 4.1 H Albumin/Globulin Ratio 1.4 1.1 TSH 1.116 Urine Color Dark Yellow Urine Appearance Clear Urine pH 6.0 Ur Specific Fromberg 1.012 Urine Protein 3+ H Urine Glucose (UA) Negative Urine Ketones Trace H Urine Blood Negative Urine Nitrite Negative Urine Bilirubin Negative Urine Urobilinogen Negative Ur Leukocyte Esterase Trace H Urine WBC (Auto) 0-5 Urine RBC (Auto) 0-2 U Hyaline Cast (Auto) >20 H U Epithel Cells (Auto) 6-10 H Urine Bacteria (Auto) None Seen Hyaline Casts Present A Granular Casts Present A Urine Mucus Present A Urine Comment Salicylates < 3.0 L Urine Opiates Screen Neg Ur Methadone, Qual Neg Urine Fentanyl Screen Neg Acetaminophen < 3 L Urine Barbiturates Neg Ur Phencyclidine (PCP) Neg U Amphetamin/Meth Scrn Neg MDMA (Ecstasy) Screen Neg U Benzodiazepines Scrn Neg Ur Cocaine Metabolite Neg U Marijuana (THC) Screen Neg Ethyl Alcohol mg/dL 338.2 H Diagnostic Findings . Cervical Spine CT 08/15/25 23:50 EXAM: CT cervical spine wo con CLINICAL HISTORY: pain TECHNIQUE: Computed tomography of the cervical spine performed without intravenous contrast. Contiguous axial images were obtained from the skull base to T2, with sagittal and coronal reformatted images reconstructed from the axial data. CT scan was performed according to ALARA (as low as reasonably achievable). COMPARISON: none FINDINGS: Loss of cervical lordotic curvature. Posterior disc osteophyte at C3/C4 level causing bilateral moderate neural foraminal narrowing. Prosthetic discs at C5/C6 and C6/C7 levels. Posterior osteophytes at C5/C6 and C6/C7 levels indenting anterior thecal sac.No neural foraminal narrowing. Cervical vertebral bodies are normal in height and alignment, with no evidence of fracture or subluxation. Lateral masses of C1 are symmetrical, and the dens is intact. Prevertebral soft tissues are not widened. The remaining suprahyoid and infrahyoid soft tissues in the neck are unremarkable. Thyroid gland appears unremarkable. IMPRESSION: 1. No acute fracture or subluxation in the cervical spine. 2. Loss of cervical lordosis- likely due to paraspinal muscle spasm . 3. Cervical spondylosis. Electronically signed by Bob Alejandro 08-16-2025 01:08 AM Cervical Spine MRI 08/16/25 01:59 EXAM: MR cervical spine wo con CLINICAL HISTORY: worsening neck pain TECHNIQUE: Multiplanar multiecho MRI sequences of the cervical spine without contrast were obtained and submitted for diagnostic interpretation. Additional sagittal oblique views were taken. COMPARISON: Prior CT dated 08/14/2025 was reviewed. FINDINGS: Vertebral Alignment: Mild ventral slippage of C2 over C3 vertebra. Straightening of the cervical curvature. No evidence of fracture or subluxation. Vertebral Bodies and Intervertebral Discs: Evidence of bone marrow edema of the opposing end plates of C6-7 elicting low SI on T1, high SI on T2WI and STIR. This could represent Degenerative Modic changes type I; however possibility of associated infective/inflammatory process could not be ruled out. Diffuse spondylodegenerative changes of the cervical spine denoted by marginal osteophytosis, MODIC II degeneration of the opposing vertebral end plate of C5-6. Reduced height and bright T2 signal of the scanned discs denoting their degeneration. Anterior approach discectomy with disc spacer insertion at C5-C6 and C6-C7 intervertebral disc. No prothesis migration of collections. [id number] analysis: C2-C3: There is no focal disc pathology, spinal canal stenosis, or neural foraminal stenosis. No cord or nerve root compression. C3-C4: Bi posterolateral disc protrusions with related bone hypertrophy measuring on the right 6.3 mm and on the left 5.4mm, causing no cord compression yet with moderate bilateral, more right neural foraminal stenosis and compression of traversing nerves. C4-C5: A wide base central and left paracentral posterior disc protrusion(with left cranial migration) with related bone hypertrophy seen mildly indenting the cord, encroaching on tranversing nerves and causing mild left preforaminal/foraminal stenosis. No spinal canal stenosis. C5-C6: A wide base central and right paracentral posterior disc protrusion with related bone hypertrophy measuring about 4.4 mm on top of an asymmetric diffuse disc bulge seen indenting the cord, compressing traversing nerves, and causing bilateral neural foraminal stenosis. C6-C7: Asymmetric diffuse disc bulge with related bone hypertrophy measuring about 3.3 mm, seen mildly compressing the cord, as well as traversing nerves, and causing mild bilateral neural foraminal stenosis. C7-T1: There is no focal disc pathology, spinal canal stenosis, or neural foraminal stenosis. No cord or nerve root compression. Spinal Cord: Focal cord attenuation and right eccentric malacia opposite the C5-C6 level, termed by volume loss and by high intra-medullary T2 signals. The thoracic region shows no significant disc pathology. No exiting nerve root or spinal cord compression. Normal morphology of the ligamentum flava. No arthropathy of the uncovertebral and zygapophyseal joints. No significant spinal canal and neural foraminal stenosis. Soft Tissues: Paraspinal soft tissues appear normal without evidence of abnormal signal intensity or mass lesions. Mild atlanto-axial osteoarthritic changes. IMPRESSION: 1. Anterior approach discectomy with disc spacer insertion at C5-C6 and C6-C7 intervertebral discs. 2. 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 3. Cervical spondylosis, disc pathologies causing mild cord compression and neural foraminal stenosis, as described. 4. Evidence of bone marrow edema of the opposing end plates of C6-7, this could represent Degenerative Modic changes type I, however possibility of associated infective/inflammtory process could not be ruled out.Correlate clinically 5. First-degree degenerative spondylolithesis of the C2 vertebra 6. Mild atlanto-axial osteoarthritic changes. Electronically signed by Robbie Omalley 08-16-2025 04:55 AM PG Care Time/CCT Total # of Minutes Spent Total Time Spent with Patient: Total time spent is greater than 50% in coordination of care (as documented) at patient's floor/unit and/or counseling patient: [place] [address] IN/OBS CONSULT LVL 3,45M Patient Type New Medical Decision Making Straight Forward Diagnoses Status post cervical discectomy Z98.890 Neck pain with history of cervical spinal surgery M54.2; Z98.890
[2025-08-16 12:14] LABS: ALC (manual) 3.85 K/uL (1.2-3.4); ANC (manual) 5.67 K/uL (1.4-6.5)
--- NOTE | 2025-08-16 12:16 | Hospitalist Progress Note ---
Date of Service August 16, 2025 Assessment & Plan (1) Suicidal ideations: Plan: 49M with PMH depression, bipolar, anxiety, alcoholism , recent cervical discectomy who presents with suicidal ideation #Suicidal ideation -Sitter present -Denies intent to harm Plan -Continue sitter -Psych consulted, appreciate input -He is no longer taking any psychiatric meds, may benefit from starting here #Neck pain -Chronic neck pain -Recent discectomy at [facility] [place] -MRI showing C5-C6 compressive myelopathy, bone marrow edema possibly from infection -No fever or leukocytosis to suggest infection Plan -Appreciate ortho-spine input -MRI with contrast pending -Observe off abx #Alcohol abuse -Drinks up to 18 beers per day -Denies history of withdrawal -Withdrawal scores low today -Continue withdrawal scoring with prn ativan #Dehydration -Clinically looks dry -Labs supporting this with elevated hgb -Sinus tachycardia likely from this + anxiety -Continue IVF for today -Encourage PO intake I spent a total of 52 minutes coordinating, documenting, and providing care for this patient excluding time spent in the performance of separately billed services. This included personally reviewing all current laboratories and imaging studies, medical reconciliation, outpatient chart review and discussion with specialists Admission and Anticipated Discharge Date Admission Date: August 15, 2025 Subjective Feeling better today. Still endorses depressed thoughts. endorsing neck pain, chronic. denies f/c headache neck stiffness chest pain dyspnea cough wheez abd pain nvd Physical Exam Physical Exam: Vitals and labs reviewed General: Well appearing, NAD HEENT: EOMI, PERRLA Neck: Supple Cardiac: RRR no rubs gallops or murmurs Lungs: CTA no rhonchi wheezing or rales Abd: S NT ND BS positive : Deffered MSK: Full ROM. No obvious deformities Ext: No Edema cyanosis Skin: Warm, Dry Neuro: AOx3 No focal deficits. mild resting tremors in UE Psych: calm Results & Data Results & Data Vital Signs (Past 12 Hours) Vital Signs Temp Pulse Pulse Resp BP BP Pulse Ox 08/16/25 08:00 36.8 C 100 H 17 145/95 H 98 08/16/25 07:30 36.9 C 116 H 149/112 H 145/111 H 95 08/16/25 04:01 37.3 C 104 H 17 133/89 96 08/16/25 03:41 122 H 08/16/25 00:50 37 C 99 H 18 148/99 H 99 08/16/25 00:32 O2 Del Method 08/16/25 08:00 Room Air 08/16/25 07:30 Room Air 08/16/25 04:01 Room Air 08/16/25 03:41 08/16/25 00:50 Room Air 08/16/25 00:32 Room Air Laboratory Results Abnormal lab results 08/15/25 08/16/25 Range/Units 21:25 06:37 Hgb 19.6 H (14.0-18.0) g/dL Hct 53.6 H (42.0-52.0) % MCHC 36.6 H 36.7 H (32.0-36.0) g/dL MPV 8.8 L 8.8 L (9.4-12.4) fL Hubbard # (Auto) 1.03 H (0.11-0.59) K/uL Anion Gap 12 H (3-11) BUN 5 L 5 L (6-23) mg/dl BUN/Creatinine Ratio 5.6 L 7.0 L (10-20) Glucose 150 H (70-99(Fasting)) mg/dl Total Bilirubin 1.3 H 1.4 H (0.2-1.0) mg/dl AST 114 H 78 H (13-39) U/L ALT 59 H (7-52) U/L Total Protein 8.6 H (6.0-8.3) gm/dl Globulin 4.1 H (2.5-4.0) gm/dl Urine Protein 3+ H (Negative) Urine Ketones Trace H (Negative) Ur Leukocyte Esterase Trace H (Negative) U Hyaline Cast (Auto) >20 H (0-2) /lpf U Epithel Cells (Auto) 6-10 H (0-2) /hpf Hyaline Casts Present A (None Presnt) /lpf Granular Casts Present A (None Prsent) /lpf Urine Mucus Present A (None Prsent) Salicylates < 3.0 L (3.0-30) mg/dl Acetaminophen < 3 L (10-30) ug/ml Ethyl Alcohol mg/dL 338.2 H (<10.0) mg/dl
[2025-08-16] MEDS: GADOBUTROL 65ML VIAL IV ONE (12:50)
--- NOTE | 2025-08-16 13:23 | Magnetic Resonance Report ---
MR cervical spine wo/w con HISTORY: 49 years-old Male abnormal marrow signal c6-7, eval for infection acute neck pain with poss ible marrow edema within the mid to lower cervical spine. Cervical spine fusion on 12/14/2024. COMPARISON: MRI cervical spine of same day at 3:13 AM, CT cervical spine of same day, MR cervical spi ne 05/24/2014 TECHNIQUE: Axial T1 noncontrast with axial and sagittal post contrast T1 images were obtained. FINDINGS: Chronic myelomalacia of the cervical spinal cord redemonstrated at C5-C6, better seen on the study fr om earlier today. There is straightening of the normal cervical lordosis along with mild multilevel i ntervertebral disc space narrowing, spondylitic spurring and facet arthrosis with small posterior poly ular disc bulging and disc osteophyte complex formation. Discectomy changes at C5-C6 and C6-C7. There is better evaluation of the central canal and neural foramina on the T2 sequences obtained earlier t johanna. Postcontrast T1 images demonstrate no abnormal enhancement or peripheral enhancing fluid collections. No intracanicular mass is seen. IMPRESSION: 1. No abnormal enhancement identified. 2. Degenerative and postoperative changes as above. 3. Chronic myelomalacia of the cervical spinal cord at C5-C6. ACT 112: Negative or not required by law. The above report was generated using voice recognition software. It may contain grammatical, syntax o r spelling errors. Electronically signed by: Reese Shahid M.D. 08/16/2025 1:21 PM
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
[2025-08-17] MEDS: LORazepam Inj 1 MG in SYRINGE 0.5 ML IV PRN (00:48)
[2025-08-17] MEDS: DIVALPROEX DELAY RELEASE 250 MG TABEC PO SCH (08:28)
--- NOTE | 2025-08-17 09:35 | Hospitalist Progress Note ---
Date of Service August 17, 2025 Assessment & Plan (1) Suicidal ideations: Plan: 49M with PMH depression, bipolar, anxiety, alcoholism , recent cervical discectomy who presents with suicidal ideation #Suicidal ideation -Sitter present -Denies intent to harm Plan -Continue sitter -Psych consulted, appreciate input -Psych started depakote 08/17 -TO [facility] when they will accept -Medically cleared for DC but [facility] requesting another 24 hours of withdrawal monitoring #Neck pain -Chronic neck pain -[place] [facility] [place] w/[place] contrast showing C5-C6 compressive myelopathy, bone marrow edema possibly from infection -No fever or leukocytosis to suggest infection -MRI w/contrast neg for infection Plan -Appreciate ortho-spine input -Observe off abx #Alcohol abuse -Drinks up to 18 beers per day -Denies history of withdrawal -Withdrawal scores low today -Continue withdrawal scoring with prn ativan #Dehydration -Resolved. Observe off IVF I spent a total of 42 minutes coordinating, documenting, and providing care for this patient excluding time spent in the performance of separately billed services. This included personally reviewing all current laboratories and imaging studies, medical reconciliation, outpatient chart review and discussion with specialists Admission and Anticipated Discharge Date Admission Date: August 15, 2025 Subjective Feeling better today. Still endorses depressed thoughts. endorsing neck pain, chronic. denies f/c headache neck stiffness chest pain dyspnea cough wheez abd pain nvd Physical Exam Physical Exam: Vitals and labs reviewed General: Well appearing, NAD HEENT: EOMI, PERRLA Neck: Supple Cardiac: RRR no rubs gallops or murmurs Lungs: CTA no rhonchi wheezing or rales Abd: S NT ND BS positive : Deffered MSK: Full ROM. No obvious deformities Ext: No Edema cyanosis Skin: Warm, Dry Neuro: AOx3 No focal deficits. mild resting tremors in UE Psych: calm Results & Data Results & Data Vital Signs (Past 12 Hours) Vital Signs Temp Pulse Pulse Resp BP BP Pulse Ox 08/17/25 07:43 36.8 C 79 19 153/100 H 161/100 H 98 08/17/25 03:48 36.8 C 81 18 148/98 H 97 08/16/25 23:34 36.7 C 83 18 148/108 H 171/113 H 95 08/16/25 23:00 81 O2 Del Method 08/17/25 07:43 Room Air 08/17/25 03:48 Room Air 08/16/25 23:34 Room Air 08/16/25 23:00 Laboratory Results Abnormal lab results 08/16/25 Range/Units 06:37 Lymphocytes # (Manual) 3.85 H (1.2-3.4) K/uL Total Abs Lymphocytes 3.85 H (1.2-3.4) K/uL Monocytes # (Manual) 1.07 H (0.11-0.59) K/uL
[2025-08-17 18:57] VITALS: O2SAT 98
--- NOTE | 2025-08-17 21:50 | Electrocardiogram Report ---
Test Reason : Blood Pressure : */* mmHG Vent. Rate : 126 BPM Atrial Rate : 126 BPM P-R Int : 128 ms QRS Dur : 90 ms QT Int : 312 ms P-R-T Axes : 16 23 4 degrees QTcB Int : 451 ms Sinus tachycardia Otherwise normal ECG When compared with ECG of 19-Aug-2017 15:08, Vent. rate has increased by 49 bpm Confirmed by Juan Ramon Luna ([id number]) on 08/17/2025 9:49:36 PM Referred By: REFERRED SELF Confirmed By: Juan Ramon Luna
[2025-08-18 07:35] VITALS: BP 162/111; RESP 17; TEMP 97.7
[2025-08-18 10:43] VITALS: PULSE 76
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
== END 2025-08-18 13:01 | DRG 897 ==
LOC: ED 21:07 → SUATTDRO 23:08 → 2S 23:08

== ENCOUNTER 2025-08-18 10:21 | Inpatient (IN) ==
[2025-08-18] MEDS ORDERED: BISMUTH SUBSALICYLATE 262 MG CHEW PO PRN (10:39)
[2025-08-18] MEDS ORDERED: MAGNESIUM HYDROXIDE SUSP 30 ML UDC PO PRN (10:39)
[2025-08-18] MEDS ORDERED: SODIUM CHLORIDE 0.65% NA SOLN 45 ML (OCEAN) PRN (10:39)
[2025-08-18] MEDS ORDERED: ALUMINUM/MAGNESIUM SUSP 30 ML UDC PO PRN (10:39)
[2025-08-18] MEDS ORDERED: ACETAMINOPHEN 325 MG TAB PO PRN (10:39)
[2025-08-18] MEDS ORDERED: LORazepam 1 MG TAB PO PRN ×2 (13:13)
[2025-08-18] MEDS: LORazepam 1 MG TAB ONE (13:33)
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
[2025-08-18] MEDS ORDERED: DIVALPROEX DELAY RELEASE 250 MG TABEC PO SCH (21:00)
[2025-08-18] MEDS: DIVALPROEX DELAY RELEASE 500 MG TAB PO SCH (22:00)
[2025-08-19] MEDS: THIAMINE HCL 100 MG TAB PO SCH (08:22)
[2025-08-19] MEDS: FOLIC ACID 1 MG TAB PO SCH (08:22)
--- NOTE | 2025-08-19 09:06 | Psychiatric Progress Note ---
Date of Service August 19, 2025 Impression / Recommendations (1) Suicidal ideations: (2) Unspecified mood [affective] disorder: (3) Bipolar affect, depressed: Plan 08/19/25: Continue AWSS protocol Continue Librium 25 mg p.o. 3 times daily continue Depakote 250 mg p.o. in the morning +500 mg p.o. at nighttime Continue suicide precautions Encourage participation in Unit programming and group activities 08/18/25: The patient was admitted to the [facility] ([facility]) on q15 min checks (behavioral with suicide precautions) for safety. The patient will participate in group, recreational, and milieu therapies and will be offered additional individual and family sessions as clinically appropriate. Start Librium 25 mg p.o.3 times daily Increase Depakote to 250 mg p.o. every morning +500 mg p.o. nightly Continue order for as needed lorazepam and according to AWSS for alcohol withdrawal Suicide Risk Level Suicide Risk Level: Moderate (q15 min suicide checks) Interval History Identifying Information EULALIA SIMMONS is a 49-year-old M who currently lives in with his mother has a history of bipolar disorder and alcohol use disorder and was admitted on 08/15/25 23:08 to the medical floor due to alcohol intoxication and risk of severe withdrawal. He was admitted to U on 08/18/25 on 201 commitment for depression, anxiety and suicidal ideation. Chief Complaint " I was afraid of the medication, or after taking it I see it makes me feel calmer." Review of Systems Sleep Information Total Hours of Sleep: 7 Meal Information Percent Meal Consumed - Dinner: 0 Subjective Subjective Patient was seen & assessed and interval progress reviewed with nursing and social work. Physical Exam Psychiatric Orientation: alert and oriented x 3 Apperance: appropriately dressed Eye Contact: good eye contact Motor Behavior: n tremor Speech: normal rate/rhythm/volume of speech Affect: + anxious affect Mood: + depressed mood; no anxious mood Thought Process: + perseveration ( less worried about catastrophic scenarios) Thought Content: + preoccupation and + self deprecation; not paranoid and no delusions Suicidal Thoughts: denies suicidal thoughts Homicidal Thoughts: denies homicidal thoughts Hallucinations: no auditory hallucinations, no visual hallucinations and no tactile hallucinations Cognition: recent memory grossly intact and remote memory grossly intact Estimated Intelligence: average estimated intelligence Insight: + fair insight Judgment: + fair judgement Vital Signs (Past 24 Hours) Last Vital Signs Temp 36.4 C 08/19/25 06:00 Pulse 78 08/19/25 06:13 Resp 16 08/19/25 06:00 BP 142/98 H 08/19/25 06:13 Pulse Ox 97 08/18/25 21:59 O2 Del Method Room Air 08/18/25 21:59 Results & Data ([facility]) Current Inpatient Medications Current Inpatient Medications: Current Inpatient Medications Acetaminophen (Acetaminophen 325 Mg Tab) 650 mg PO Q4H PRN PRN Reason: Headache or Minor Fever Stop: 09/17/25 10:38 Al Hydrox/Mg Hydrox/Simethicone (Aluminum/Magnesium Susp 30 Ml Udc) 30 ml PO Q4H PRN PRN Reason: GI Upset Stop: 09/17/25 10:38 Amlodipine Besylate (Amlodipine Besylate 5 Mg Tab) 2.5 mg PO QAM [facility] Stop: 09/18/25 08:59 Last Admin: 08/19/25 08:19 Dose: 2.5 mg Bismuth Subsalicylate (Bismuth Subsalicylate 262 Mg Chew) 2 tab PO Q30M PRN PRN Reason: Loose Stool/Diarrhea Stop: 09/17/25 10:38 Chlordiazepoxide HCl (Chlordiazepoxide Hcl 25 Mg Cap) 25 mg PO TID [facility] Stop: 09/17/25 20:59 Last Admin: 08/19/25 08:21 Dose: 25 mg Divalproex Sodium (Divalproex Delay Release 500 Mg Tab) 500 mg PO HS [facility] Stop: 09/17/25 21:59 Last Admin: 08/18/25 22:00 Dose: 500 mg Divalproex Sodium (Divalproex Delay Release 250 Mg Tabec) 250 mg PO QAM [facility] Stop: 09/18/25 09:14 Folic Acid (Folic Acid 1 Mg Tab) 1 mg PO QAM [facility] Stop: 09/18/25 08:59 Last Admin: 08/19/25 08:22 Dose: 1 mg Hydroxyzine HCl (Hydroxyzine Hcl 25 Mg Tab) 50 mg PO HSZ PRN PRN Reason: Insomnia Stop: 09/17/25 10:38 Hydroxyzine HCl (Hydroxyzine Hcl 25 Mg Tab) 25 mg PO Q4H PRN PRN Reason: Anxiety Stop: 09/17/25 10:38 Lorazepam (Lorazepam 1 Mg Tab) 1 mg PO UD PRN; Protocol PRN Reason: AWSS 6,7 (Sx Triggered) Stop: 09/17/25 13:12 Lorazepam (Lorazepam 1 Mg Tab) 2 mg PO UD PRN; Protocol PRN Reason: AWSS 8,9 (Sx Triggered) Stop: 09/17/25 13:12 Lorazepam (Lorazepam 1 Mg Tab) 3 mg PO ONCE PRN; Protocol PRN Reason: AWSS 10 & Above(Sx Triggered) Stop: 09/17/25 13:12 Magnesium Hydroxide (Magnesium Hydroxide Susp 30 Ml Udc) 30 ml PO DAILY PRN PRN Reason: Constipation Stop: 09/17/25 10:38 Pantoprazole Sodium (Pantoprazole 40 Mg Tab) 40 mg PO QAM [facility] Stop: 09/18/25 08:59 Last Admin: 08/19/25 08:42 Dose: Not Given Sodium Chloride (Sodium Chloride 0.65% Na Soln 45 Ml ([place])) 1 - 2 sprays NA PRN PRN PRN Reason: Nasal Dryness/Congestion Stop: 09/17/25 10:38 Thiamine HCl (Thiamine Hcl 100 Mg Tab) 100 mg PO QAM [facility] Stop: 09/18/25 08:59 Last Admin: 08/19/25 08:22 Dose: 100 mg
[2025-08-19] MEDS: DIVALPROEX DELAY RELEASE 250 MG TABEC PO SCH (09:36)
[2025-08-19] MEDS: LORazepam 1 MG TAB PO PRN (14:20)
--- NOTE | 2025-08-20 09:52 | Psychiatric Progress Note ---
Date of Service August 20, 2025 Impression / Recommendations Impression Psych was consulted due to patient verbalizing suicidal ideation while patient was admitted to the medical floor on 08/16/2025 for alcohol withdrawal he transition to our unit. And during the transfer his blood pressure spiked, likely a combination of residual withdrawal symptoms and severe anxiety about the change. Once on the unit he remained in his room, received Ativan per [facility] protocol. A: Patient is tolerating medications well. We are pending to assess suitability of Depakote per liver response. Labs have been ordered. He required an increase of the Librium dose yesterday. Withdrawal and anxiety better controlled today with he new dose. NOt able to taper down today. The patient's AUDIT =28 suggests dependance. Brief intervention was offered and accepted. Interventions provided on a daily basis (greater than 10 min in length) and included assessing readiness to quit, advice on how to reduce or abstain from alcohol, and to set a specific goal for this hospitalization. Patient received counseling for alcohol use disorder. Behavior change techniques (motivational/self-help counseling), He may not be a candidate for naltrexone due to liver involvement. Will wait for follow up labs. Overall, I spent a total of 45 minutes with this case, including review of chart,direct evaluation of the patient,counseling the patient,ordering medication,coordination with nursing,coordination of care with hospitalist service,risk assessment,and documentation. (1) Suicidal ideations: (2) Unspecified mood [affective] disorder: (3) Bipolar affect, depressed: Plan 08/20/25: Continue Librium 50 mg 3 times daily (dose was increased yesterday evening) Continue Depakote 250 mg p.o. every morning +500 milligrams at bedtime. CMP ordered for follow-up of liver enzymes for tomorrow and valproic acid level ordered for 1126 May benefit from propranolol for anxiety will discuss after labs are received. 08/19/25: Continue AWSS protocol Continue Librium 25 mg p.o. 3 times daily continue Depakote 250 mg p.o. in the morning +500 mg p.o. at nighttime Continue suicide precautions Encourage participation in Unit programming and group activities 08/18/25: The patient was admitted to the [facility] ([facility] unit) on q15 min checks (behavioral with suicide precautions) for safety. The patient will participate in group, recreational, and milieu therapies and will be offered additional individual and family sessions as clinically appropriate. Start Librium 25 mg p.o.3 times daily Increase Depakote to 250 mg p.o. every morning +500 mg p.o. nightly Continue order for as needed lorazepam and according to AWSS for alcohol withdrawal Suicide Risk Level Suicide Risk Level: Moderate (q15 min suicide checks) Risk Factors Assessment Do You Have Access To A Gun?: No Interval History Identifying Information EULALIA SIMMONS is a 49-year-old M who currently lives in with his mother has a history of bipolar disorder and alcohol use disorder and was admitted on 08/15/25 23:08 to the medical floor due to alcohol intoxication and risk of severe withdrawal. He was admitted to [facility] on 08/18/25 on 201 commitment for depression, anxiety and suicidal ideation. Chief Complaint "Is getting easier with the medication or not being scared." Review of Systems Sleep Information Total Hours of Sleep: 5 Meal Information Percent Meal Consumed - Breakfast: 100 Percent Meal Consumed - Lunch: 100 Percent Meal Consumed - Dinner: 100 Subjective Subjective Patient was seen & assessed and interval progress reviewed with treatment team. According to Staff, patient has been visible in the ay area, went to groups last evening. AWSS: 08/19 6pm=2 08/19 10pm=3 08/20 am=0 Patient presented calm and cooperative. Patient denied suicidal ideation today. Reported feeling less anxious in general and less worried about the side effects of the medications he is already taking. We discussed need to slowly taper off Librium. We discussed need for follow up labs including Depakote level and liver enzymes. Physical Exam Psychiatric Orientation: alert and oriented x 3 Apperance: appropriately dressed Eye Contact: good eye contact Motor Behavior: n tremor Speech: normal rate/rhythm/volume of speech Affect: + anxious affect Mood: + depressed mood; no anxious mood Thought Process: + perseveration ( less worried about catastrophic scenarios) Thought Content: + preoccupation and + self deprecation; not paranoid and no delusions Suicidal Thoughts: denies suicidal thoughts Homicidal Thoughts: denies homicidal thoughts Hallucinations: no auditory hallucinations, no visual hallucinations and no tactile hallucinations Cognition: recent memory grossly intact and remote memory grossly intact Estimated Intelligence: average estimated intelligence Insight: + limited insight Judgment: + fair judgement Vital Signs (Past 24 Hours) Last Vital Signs Temp 36.2 C L 08/20/25 06:00 Pulse 90 08/20/25 06:13 Resp 16 08/20/25 06:00 BP 123/92 08/20/25 06:13 Pulse Ox 97 08/18/25 21:59 O2 Del Method Room Air 08/18/25 21:59 Results & Data ([facility]) Current Inpatient Medications Current Inpatient Medications: Current Inpatient Medications Acetaminophen (Acetaminophen 325 Mg Tab) 650 mg PO Q4H PRN PRN Reason: Headache or Minor Fever Stop: 09/17/25 10:38 Al Hydrox/Mg Hydrox/Simethicone (Aluminum/Magnesium Susp 30 Ml Udc) 30 ml PO Q4H PRN PRN Reason: GI Upset Stop: 09/17/25 10:38 Amlodipine Besylate (Amlodipine Besylate 5 Mg Tab) 2.5 mg PO QAM [facility] Stop: 09/18/25 08:59 Last Admin: 08/20/25 08:10 Dose: 2.5 mg Bismuth Subsalicylate (Bismuth Subsalicylate 262 Mg Chew) 2 tab PO Q30M PRN PRN Reason: Loose Stool/Diarrhea Stop: 09/17/25 10:38 Chlordiazepoxide HCl (Chlordiazepoxide Hcl 25 Mg Cap) 50 mg PO TID [facility] Stop: 09/18/25 20:59 Last Admin: 08/20/25 08:28 Dose: 50 mg Divalproex Sodium (Divalproex Delay Release 500 Mg Tab) 500 mg PO HS [facility] Stop: 09/17/25 21:59 Last Admin: 08/19/25 21:55 Dose: 500 mg Divalproex Sodium (Divalproex Delay Release 250 Mg Tabec) 250 mg PO QAM [facility] Stop: 09/18/25 09:14 Last Admin: 08/20/25 08:10 Dose: 250 mg Folic Acid (Folic Acid 1 Mg Tab) 1 mg PO QAM [facility] Stop: 09/18/25 08:59 Last Admin: 08/20/25 08:10 Dose: 1 mg Hydroxyzine HCl (Hydroxyzine Hcl 25 Mg Tab) 50 mg PO HSZ PRN PRN Reason: Insomnia Stop: 09/17/25 10:38 Hydroxyzine HCl (Hydroxyzine Hcl 25 Mg Tab) 25 mg PO Q4H PRN PRN Reason: Anxiety Stop: 09/17/25 10:38 Lorazepam (Lorazepam 1 Mg Tab) 1 mg PO UD PRN; Protocol PRN Reason: AWSS 6,7 (Sx Triggered) Stop: 09/17/25 13:12 Lorazepam (Lorazepam 1 Mg Tab) 2 mg PO UD PRN; Protocol PRN Reason: AWSS 8,9 (Sx Triggered) Stop: 09/17/25 13:12 Last Admin: 08/19/25 14:20 Dose: 2 mg Lorazepam (Lorazepam 1 Mg Tab) 3 mg PO ONCE PRN; Protocol PRN Reason: AWSS 10 & Above(Sx Triggered) Stop: 09/17/25 13:12 Magnesium Hydroxide (Magnesium Hydroxide Susp 30 Ml Udc) 30 ml PO DAILY PRN PRN Reason: Constipation Stop: 09/17/25 10:38 Pantoprazole Sodium (Pantoprazole 40 Mg Tab) 40 mg PO QAM [facility] Stop: 09/18/25 08:59 Last Admin: 08/20/25 08:28 Dose: Not Given Sodium Chloride (Sodium Chloride 0.65% Na Soln 45 Ml ([place])) 1 - 2 sprays NA PRN PRN PRN Reason: Nasal Dryness/Congestion Stop: 09/17/25 10:38 Thiamine HCl (Thiamine Hcl 100 Mg Tab) 100 mg PO QAM [facility] Stop: 09/18/25 08:59 Last Admin: 08/20/25 08:10 Dose: 100 mg
[2025-08-21 08:15] LABS: Hematocrit (blood only) 43.5 % (42.0-52.0); Hemoglobin 15.7 g/dL (14.0-18.0); Immature Granulocytes # (auto) 0.03 K/uL (0.01-0.20); Immature Granulocytes % (auto) 0.4 %; Mean Corpuscular Hemoglobin 33.5 pg (25.0-34.0); Mean Corpuscular Volume 92.9 fL (80.0-100.0); Platelet Count 155 K/uL (130-400); RDW Standard Deviation 40.7 fL (36.4-46.3); Red Blood Count 4.68 M/uL (4.70-6.10); White Blood Count 6.90 K/ul (4.8-10.8)
[2025-08-21 08:30] LABS: Alanine Aminotransferase 46.0 U/L (7-52); Albumin Globulin Ratio 1.6 (0.9-2); Albumin Level 4.1 gm/dl (3.4-5.0); Alkaline Phosphatase 51.0 U/L (34-104); Anion Gap 4.0 (3-11); Bilirubin,Total 0.9 mg/dl (0.2-1.0); Blood Urea Nitrogen 11.0 mg/dl (6-23); Calcium 9.0 mg/dl (8.6-10.3); Carbon Dioxide 30.0 mmol/L (21-32); Chloride 101.0 mmol/L (98-107); Creatinine Clr Calc Pharmacy 139.4 ml/min; Globulin 2.6 gm/dl (2.5-4.0); Glucose 90.0 mg/dl (70-99(Fasting)); Potassium 4.3 mmol/L (3.5-5.1); Sodium 135.0 mmol/L (136-145); Total Protein 6.7 gm/dl (6.0-8.3)
--- NOTE | 2025-08-21 09:03 | Psychiatric Progress Note ---
Date of Service August 21, 2025 Impression / Recommendations Impression Diagnostically consistent with unspecified depression likely a combination of bipolar affective disorder type II and alcohol-induced mood symptoms as well as generalized anxiety disorder and social anxiety disorder and history of TBI. A: Depression slightly worsened in context of grief but overall improving, ongoing anxiety and he feels unsafe to discharge due to his ongoing worries about medication changes and symptoms. Labwork reviewed and reassuring for downtrending AST and normal ALT, continue with Depakote. Given longstanding anxiety discussed medication options in detail. He consents to starting gabapentin as off-label for alcohol use, nerve pain and anxiety and fluoxetine for ARIANE. Reviewed side effects including but not limited to: GI/SAMUEL with fluoxetine and potential for fatal respiratory suppression with gabapentin if combined with alcohol/sedation. Will continue with Librium taper. Significant time was spent on motivational interviewing and discussion of MAT fo r alcohol use. He declines naltrexone but wants to use gabapentin as a harm reduction strategy. Reviewed that if his drinking resumes then gabapentin will not be a safe option which he understands. Overall, I spent a total of 50 minutes on this case including meeting with the patient, reviewing the chart, nursing report, multidisciplinary team meeting, orders, and documentation. (1) Suicidal ideations: (2) Unspecified mood [affective] disorder: (3) Bipolar affect, depressed: Plan 08/21/2025: -Decrease Librium to 25mg TID tomorrow -Start fluoxetine 20mg daily tomorrow -Start gabapentin 300mg TID 08/20/25: Continue Librium 50 mg 3 times daily (dose was increased yesterday evening) Continue Depakote 250 mg p.o. every morning +500 milligrams at bedtime. CMP ordered for follow-up of liver enzymes for tomorrow and valproic acid level ordered for 08/25 May benefit from propranolol for anxiety will discuss after labs are received. 08/19/25: Continue AWSS protocol Continue Librium 25 mg p.o. 3 times daily continue Depakote 250 mg p.o. in the morning +500 mg p.o. at nighttime Continue suicide precautions Encourage participation in Unit programming and group activities 08/18/25: The patient was admitted to the [facility] ([facility] unit) on q15 min checks (behavioral with suicide precautions) for safety. The patient will participate in group, recreational, and milieu therapies and will be offered additional individual and family sessions as clinically appropriate. Start Librium 25 mg p.o.3 times daily Increase Depakote to 250 mg p.o. every morning +500 mg p.o. nightly Continue order for as needed lorazepam and according to AWSS for alcohol withdrawal Suicide Risk Level Suicide Risk Level: Moderate (q15 min suicide checks) (depression and anxiety but denies current SI and feels safe and feels able to ask for support if needed) Risk Factors Assessment Do You Have Access To A Gun?: No Family History of Suicide: Yes Interval History Identifying Information EULALIA SIMMONS is a 49-year-old M who currently lives in with his mother has a history of bipolar disorder and alcohol use disorder and was admitted on 08/15/25 23:08 to the medical floor due to alcohol intoxication and risk of severe withdrawal. He was admitted to MHU on 08/18/25 on 201 commitment for depression, anxiety and suicidal ideation. Chief Complaint "I get really anxious especially about new medications". Review of Systems Sleep Information Total Hours of Sleep: 5.75 Meal Information Percent Meal Consumed - Breakfast: 100 Percent Meal Consumed - Lunch: 100 Percent Meal Consumed - Dinner: 100 Subjective Subjective Patient was seen & assessed and interval progress reviewed with nursing. His mood was improving yesterday but then he learned that one of his snakes which acutely worsened his mood due to grief. Continues to prefer to see medications packaged before taking them. Attending all groups. Today reports ongoing anxiety but feels his depression is improving a bit. Reflects on how anxiety keeps him from wanting to go in public and keeps him from feeling able to walk inside grocery stores. He would like to consider additional medication to help with this. Discussed his alcohol use, he feels he's cut down over time and thinks he may still drink occasionally. He is not interested in naltrexone but would like to try gabapentin as he took this in the past with good benefit for his nerve pain and he is aware it's used off label for alcohol use. Physical Exam Psychiatric Orientation: alert and oriented x 3 Apperance: appropriately dressed Eye Contact: good eye contact Motor Behavior: no abnormal motor movements Speech: normal rate/rhythm/volume of speech Affect: + anxious affect Mood: + depressed mood and + anxious mood Thought Process: + circumstantial thought process Thought Content: + preoccupation and reality based without delusions Suicidal Thoughts: denies suicidal thoughts Homicidal Thoughts: denies homicidal thoughts Hallucinations: no auditory hallucinations, no visual hallucinations and no tactile hallucinations Cognition: recent memory grossly intact and remote memory grossly intact Estimated Intelligence: average estimated intelligence Insight: + limited insight Judgment: + fair judgement Vital Signs (Past 24 Hours) Last Vital Signs Temp 36.6 C 08/21/25 06:24 Pulse 64 08/21/25 06:24 Resp 16 08/21/25 06:24 BP 118/76 08/21/25 06:26 Pulse Ox 97 08/21/25 06:24 O2 Del Method Room Air 08/21/25 06:24 Results & Data ([facility]) Laboratory Results Laboratory Results - last 24 hr 08/21/25 08:00 WBC 6.90 RBC 4.68 L Hgb 15.7 Hct 43.5 MCV 92.9 MCH 33.5 MCHC 36.1 H RDW Std Deviation 40.7 RDW Coeff of Makenzie 11.9 Plt Count 155 MPV 9.1 L Immature Gran % (Auto) 0.4 Neut % (Auto) 54.7 Lymph % (Auto) 25.5 [place] % (Auto) 13.0 Eos % (Auto) 5.2 Baso % (Auto) 1.2 Neut # (Auto) 3.77 Lymph # (Auto) 1.76 [place] # (Auto) 0.90 H Eos # (Auto) 0.36 Baso # (Auto) 0.08 Immature Gran # (Auto) 0.03 Sodium 135 L Potassium 4.3 Chloride 101 Carbon Dioxide 30 Anion Gap 4 BUN 11 Creatinine 0.69 Est Cr Clr Drug Dosing 139.4 eGFR 114.87 BUN/Creatinine Ratio 15.9 Glucose 90 Calcium 9.0 Total Bilirubin 0.9 AST 51 H ALT 46 Alkaline Phosphatase 51 Total Protein 6.7 Albumin 4.1 Globulin 2.6 Albumin/Globulin Ratio 1.6 Current Inpatient Medications Current Inpatient Medications: Current Inpatient Medications Acetaminophen (Acetaminophen 325 Mg Tab) 650 mg PO Q4H PRN PRN Reason: Headache or Minor Fever Stop: 09/17/25 10:38 Al Hydrox/Mg Hydrox/Simethicone (Aluminum/Magnesium Susp 30 Ml Udc) 30 ml PO Q4H PRN PRN Reason: GI Upset Stop: 09/17/25 10:38 Amlodipine Besylate (Amlodipine Besylate 5 Mg Tab) 2.5 mg PO QAM [facility] Stop: 09/18/25 08:59 Last Admin: 08/21/25 08:46 Dose: 2.5 mg Bismuth Subsalicylate (Bismuth Subsalicylate 262 Mg Chew) 2 tab PO Q30M PRN PRN Reason: Loose Stool/Diarrhea Stop: 09/17/25 10:38 Chlordiazepoxide HCl (Chlordiazepoxide Hcl 25 Mg Cap) 50 mg PO TID [facility] Stop: 09/18/25 20:59 Last Admin: 08/21/25 08:46 Dose: 50 mg Divalproex Sodium (Divalproex Delay Release 500 Mg Tab) 500 mg PO HS JEANMARIE Stop: 09/17/25 21:59 Last Admin: 08/20/25 21:32 Dose: 500 mg Divalproex Sodium (Divalproex Delay Release 250 Mg Tabec) 250 mg PO QAM [facility] Stop: 09/18/25 09:14 Last Admin: 08/21/25 08:47 Dose: 250 mg Folic Acid ([facility] 1 Mg Tab) [facility] Stop: 09/18/25 08:59 Last Admin: 08/21/25 08:47 Dose: 1 mg Hydroxyzine HCl (Hydroxyzine Hcl 25 Mg Tab) 50 mg PO HSZ PRN PRN Reason: Insomnia Stop: 09/17/25 10:38 Hydroxyzine HCl (Hydroxyzine Hcl 25 Mg Tab) 25 mg PO Q4H PRN PRN Reason: Anxiety Stop: 09/17/25 10:38 Lorazepam (Lorazepam 1 Mg Tab) 1 mg PO UD PRN; Protocol PRN Reason: AWSS 6,7 (Sx Triggered) Stop: 09/17/25 13:12 Lorazepam (Lorazepam 1 Mg Tab) 2 mg PO UD PRN; Protocol PRN Reason: AWSS 8,9 (Sx Triggered) Stop: 09/17/25 13:12 Last Admin: 08/19/25 14:20 Dose: 2 mg Lorazepam (Lorazepam 1 Mg Tab) 3 mg PO ONCE PRN; Protocol PRN Reason: AWSS 10 & Above(Sx Triggered) Stop: 09/17/25 13:12 Magnesium Hydroxide (Magnesium Hydroxide Susp 30 Ml Udc) 30 ml PO DAILY PRN PRN Reason: Constipation Stop: 09/17/25 10:38 Pantoprazole Sodium (Pantoprazole 40 Mg Tab) 40 mg PO QAM [facility] Stop: 09/18/25 08:59 Last Admin: 08/21/25 08:52 Dose: Not Given Sodium Chloride (Sodium Chloride 0.65% Na Soln 45 Ml ([place])) 1 - 2 sprays NA PRN PRN PRN Reason: Nasal Dryness/Congestion Stop: 09/17/25 10:38 Thiamine HCl (Thiamine Hcl 100 Mg Tab) [facility] Stop: 09/18/25 08:59 Last Admin: 08/21/25 08:47 Dose: 100 mg
[2025-08-21] MEDS: GABAPENTIN 300 MG CAP PO SCH (21:11)
--- NOTE | 2025-08-22 07:55 | Psychiatric Progress Note ---
Date of Service August 22, 2025 Impression / Recommendations Impression Diagnostically consistent with unspecified depression likely a combination of bipolar affective disorder type II and alcohol-induced mood symptoms as well as generalized anxiety disorder and social anxiety disorder and history of TBI. A: Mood improving, he is tolerating initiation of fluoxetine so far. Ongoing [place] regarding his alcohol use. He's considering living with a friend after spending a short amount of time at his mother's. He consents to ongoing Librium taper to discontinuation. He has no aftercare so SW to explore therapy and psychiatry referral options. Depakote level tomorrow AM. Overall, I spent a total of 35 minutes on this case including meeting with the patient, reviewing the chart, nursing report, multidisciplinary team meeting, orders, and documentation. (1) Suicidal ideations: (2) Unspecified mood [affective] disorder: (3) Bipolar affect, depressed: Plan 08/22/2025: -Discontinue Librium after HS dose tonight. 08/21/2025: -Decrease Librium to 25mg TID tomorrow -Start fluoxetine 20mg daily tomorrow -Start gabapentin 300mg TID 08/20/25: Continue Librium 50 mg 3 times daily (dose was increased yesterday evening) Continue Depakote 250 mg p.o. every morning +500 milligrams at bedtime. CMP ordered for follow-up of liver enzymes for tomorrow and valproic acid level ordered for 08/25 May benefit from propranolol for anxiety will discuss after labs are received. 08/19/25: Continue AWSS protocol Continue Librium 25 mg p.o. 3 times daily continue Depakote 250 mg p.o. in the morning +500 mg p.o. at nighttime Continue suicide precautions Encourage participation in Unit programming and group activities 08/18/25: The patient was admitted to the [facility] ([facility] mental health unit) on q15 min checks (behavioral with suicide precautions) for safety. The patient will participate in group, recreational, and milieu therapies and will be offered additional individual and family sessions as clinically appropriate. Start Librium 25 mg p.o.3 times daily Increase Depakote to 250 mg p.o. every morning +500 mg p.o. nightly Continue order for as needed lorazepam and according to AWSS for alcohol withdrawal Suicide Risk Level Suicide Risk Level: Moderate (q15 min suicide checks) (depression and anxiety but denies current SI and feels safe and feels able to ask for support if needed) Risk Factors Assessment Do You Have Access To A Gun?: No Family History of Suicide: Yes Interval History Identifying Information EULALIA SIMMONS is a 49-year-old M who currently lives in with his mother has a history of bipolar disorder and alcohol use disorder and was admitted on 08/15/25 23:08 to the medical floor due to alcohol intoxication and risk of severe withdrawal. He was admitted to MHU on 08/18/25 on 201 commitment for depression, anxiety and suicidal ideation. Chief Complaint "Doing ok". Review of Systems Sleep Information Total Hours of Sleep: 11 Meal Information Percent Meal Consumed - Breakfast: 100 Percent Meal Consumed - Lunch: 100 Percent Meal Consumed - Dinner: 100 Subjective Subjective Patient was seen & assessed and interval progress reviewed with nursing and social work. Out of his room, interactive with peers. Had a good visit with his sister, she feels his anxiety is much better under control. Today reports having some anxiety about taking new medications but overall feels "relaxed". He denies SI but still has thoughts about passive SI sometimes. He worries that his anxiety will worsen once Librium is discontinued and that he won't know how to cope if he's outside of the hospital. He'd prefer a more rapid taper so he can see how he feels on the Depakote, fluoxetine and gabapentin before returning home. Denies any medication side effects. Slept well last night. Physical Exam Psychiatric Orientation: alert and oriented x 3 Apperance: appropriately dressed Eye Contact: good eye contact Motor Behavior: no abnormal motor movements Speech: normal rate/rhythm/volume of speech Affect: + anxious affect Mood: + anxious mood Thought Process: + circumstantial thought process Thought Content: + preoccupation and reality based without delusions Suicidal Thoughts: denies suicidal thoughts (intermittent passive ), denies suicidal plan and denies suicidal intent Homicidal Thoughts: denies homicidal thoughts Hallucinations: no auditory hallucinations, no visual hallucinations and no tactile hallucinations Cognition: recent memory grossly intact and remote memory grossly intact Estimated Intelligence: average estimated intelligence Insight: + limited insight Judgment: + fair judgement Vital Signs (Past 24 Hours) Last Vital Signs Temp 36.6 C 08/21/25 14:20 Pulse 71 08/22/25 06:20 Resp 16 08/22/25 06:20 BP 120/77 08/22/25 06:22 Pulse Ox 96 08/22/25 06:20 O2 Del Method Room Air 08/22/25 06:20 Results & Data ([facility]) Laboratory Results Laboratory Results - last 24 hr 08/21/25 08:00 WBC 6.90 RBC 4.68 L Hgb 15.7 Hct 43.5 MCV 92.9 MCH 33.5 MCHC 36.1 H RDW Std Deviation 40.7 RDW Coeff of Makenzie 11.9 Plt Count 155 MPV 9.1 L Immature Gran % (Auto) 0.4 Neut % (Auto) 54.7 Lymph % (Auto) 25.5 [place] % (Auto) 13.0 Eos % (Auto) 5.2 Baso % (Auto) 1.2 Neut # (Auto) 3.77 Lymph # (Auto) 1.76 [place] # (Auto) 0.90 H Eos # (Auto) 0.36 Baso # (Auto) 0.08 Immature Gran # (Auto) 0.03 Sodium 135 L Potassium 4.3 Chloride 101 Carbon Dioxide 30 Anion Gap 4 BUN 11 Creatinine 0.69 Est Cr Clr Drug Dosing 139.4 eGFR 114.87 BUN/Creatinine Ratio 15.9 Glucose 90 Calcium 9.0 Total Bilirubin 0.9 AST 51 H ALT 46 Alkaline Phosphatase 51 Total Protein 6.7 Albumin 4.1 Globulin 2.6 Albumin/Globulin Ratio 1.6 Current Inpatient Medications Current Inpatient Medications: Current Inpatient Medications Acetaminophen (Acetaminophen 325 Mg Tab) 650 mg PO Q4H PRN PRN Reason: Headache or Minor Fever Stop: 09/17/25 10:38 Al Hydrox/Mg Hydrox/Simethicone (Aluminum/Magnesium Susp 30 Ml Udc) 30 ml PO Q4H PRN PRN Reason: GI Upset Stop: 09/17/25 10:38 Amlodipine Besylate (Amlodipine Besylate 5 Mg Tab) 2.5 mg PO QAM JEANMARIE Stop: 09/18/25 08:59 Last Admin: 08/21/25 08:46 Dose: 2.5 mg Bismuth Subsalicylate (Bismuth Subsalicylate 262 Mg Chew) 2 tab PO Q30M PRN PRN Reason: Loose Stool/Diarrhea Stop: 09/17/25 10:38 Chlordiazepoxide HCl (Chlordiazepoxide Hcl 25 Mg Cap) 25 mg PO TID JEANMARIE Stop: 09/20/25 20:59 Last Admin: 08/21/25 21:11 Dose: 25 mg Divalproex Sodium (Divalproex Delay Release 500 Mg Tab) 500 mg PO HS JEANMARIE Stop: 09/17/25 21:59 Last Admin: 08/21/25 21:11 Dose: 500 mg Divalproex Sodium (Divalproex Delay Release 250 Mg Tabec) 250 mg PO QAM JEANMARIE Stop: 09/18/25 09:14 Last Admin: 08/21/25 08:47 Dose: 250 mg Fluoxetine HCl (Fluoxetine Hcl 20 Mg Cap) 20 mg PO QAM [facility] Stop: 09/21/25 08:59 Folic Acid (Folic Acid 1 Mg Tab) 1 mg PO QAM [facility] Stop: 09/18/25 08:59 Last Admin: 08/21/25 08:47 Dose: 1 mg Gabapentin (Gabapentin 300 Mg Cap) 300 mg PO TID JEANMARIE Stop: 09/20/25 20:59 Last Admin: 08/21/25 21:11 Dose: 300 mg Hydroxyzine HCl (Hydroxyzine Hcl 25 Mg Tab) 50 mg PO HSZ PRN PRN Reason: Insomnia Stop: 09/17/25 10:38 Hydroxyzine HCl (Hydroxyzine Hcl 25 Mg Tab) 25 mg PO Q4H PRN PRN Reason: Anxiety Stop: 09/17/25 10:38 Lorazepam (Lorazepam 1 Mg Tab) 1 mg PO UD PRN; Protocol PRN Reason: AWSS 6,7 (Sx Triggered) Stop: 09/17/25 13:12 Lorazepam (Lorazepam 1 Mg Tab) 2 mg PO UD PRN; Protocol PRN Reason: AWSS 8,9 (Sx Triggered) Stop: 09/17/25 13:12 Last Admin: 08/19/25 14:20 Dose: 2 mg Lorazepam (Lorazepam 1 Mg Tab) 3 mg PO ONCE PRN; Protocol PRN Reason: AWSS 10 & Above(Sx Triggered) Stop: 09/17/25 13:12 Magnesium Hydroxide (Magnesium Hydroxide Susp 30 Ml Udc) 30 ml PO DAILY PRN PRN Reason: Constipation Stop: 09/17/25 10:38 Pantoprazole Sodium (Pantoprazole 40 Mg Tab) 40 mg PO QAM [facility] Stop: 09/18/25 08:59 Last Admin: 08/21/25 08:52 Dose: Not Given Sodium Chloride (Sodium Chloride 0.65% Na Soln 45 Ml ([place])) 1 - 2 sprays NA PRN PRN PRN Reason: Nasal Dryness/Congestion Stop: 09/17/25 10:38 Thiamine HCl (Thiamine Hcl 100 Mg Tab) 100 mg PO QAM [facility] Stop: 09/18/25 08:59 Last Admin: 08/21/25 08:47 Dose: 100 mg
[2025-08-22] MEDS: NICOTINE POLACRILEX 2 MG GUM MT PRN (21:59)
[2025-08-23 07:04] VITALS: O2SAT 97
--- NOTE | 2025-08-23 08:40 | Psychiatric Progress Note ---
Date of Service August 23, 2025 Impression / Recommendations Impression Diagnostically consistent with unspecified depression likely a combination of bipolar affective disorder type II and alcohol-induced mood symptoms as well as generalized anxiety disorder and social anxiety disorder and history of TBI. A: Mood continues to improve. Tolerating medications without side effects. Depakote level reasonable for ongoing use for mood stabilization, could be i ncreased in the future if needed. Ongoing NH regarding his alcohol use, he is motivated to cut down on his use but doesn't feel motivated to stop drinking completely. Ongoing discussions about psychoeducation of addiction and difficulty of moderation. He is not interested in residential substance use treatment. He feels safe but worries about his anxiety increasing after discharge but feels it is well controlled in the hospital. Overall, I spent a total of 36 minutes on this case including meeting with the patient, reviewing the chart, nursing report, multidisciplinary team meeting, orders, and documentation. (1) Unspecified mood [affective] disorder: (2) Bipolar affect, depressed: (3) ARIANE (generalized anxiety disorder): (4) Social anxiety disorder: (5) Alcohol use disorder: (6) Post traumatic stress disorder (PTSD): Plan 08/23/2025: -Librium 10mg TID prn for alcohol withdrawal symptoms 08/22/2025: -Discontinue Librium after HS dose tonight. 08/21/2025: -Decrease Librium to 25mg TID tomorrow -Start fluoxetine 20mg daily tomorrow -Start gabapentin 300mg TID 08/20/25: Continue Librium 50 mg 3 times daily (dose was increased yesterday evening) Continue Depakote 250 mg p.o. every morning +500 milligrams at bedtime. CMP ordered for follow-up of liver enzymes for tomorrow and valproic acid level ordered for 08/25 May benefit from propranolol for anxiety will discuss after labs are received. 08/19/25: Continue AWSS protocol Continue Librium 25 mg p.o. 3 times daily continue Depakote 250 mg p.o. in the morning +500 mg p.o. at nighttime Continue suicide precautions Encourage participation in Unit programming and group activities 08/18/25: The patient was admitted to the [facility]) on q15 min checks (behavioral with suicide precautions) for safety. The patient will participate in group, recreational, and milieu therapies and will be offered additional individual and family sessions as clinically appropriate. Start Librium 25 mg p.o.3 times daily Increase Depakote to 250 mg p.o. every morning +500 mg p.o. nightly Continue order for as needed lorazepam and according to AWSS for alcohol withdrawal Suicide Risk Level Suicide Risk Level: Moderate (q15 min suicide checks) (mood improving, denies current SI and feels safe and feels able to ask for support if needed) Risk Factors Assessment Do You Have Access To A Gun?: No Family History of Suicide: Yes Interval History Identifying Information EULALIA SIMMONS is a 49-year-old M who currently lives in with his mother has a history of bipolar disorder and alcohol use disorder and was admitted on 08/15/25 23:08 to the medical floor due to alcohol intoxication and risk of severe withdrawal. He was admitted to [facility] on 08/18/25 on 201 commitment for depression, anxiety and suicidal ideation. Chief Complaint "OK, up and down". Review of Systems Sleep Information Total Hours of Sleep: 5 Meal Information Percent Meal Consumed - Breakfast: 100 Percent Meal Consumed - Lunch: 100 Percent Meal Consumed - Dinner: 100 Subjective Subjective Patient was seen & assessed and interval progress reviewed with treatment team. Rated his mood "comfortable" last evening. Attending groups. Today reports his mood is "up and down" but improving and "I'm very comfortable here". he reflects on how much his anxiety has lessened over this admission. He denies any medication side effects. Denies SI. Required dose of prn Librium mid- morning for elevated BP and slight shakiness which he found very effective, no further symptoms since. Reviewed that this remains available if needed. Reviewed Depakote level, he's comfortable with current dose. Physical Exam Psychiatric Orientation: alert and oriented x 3 Apperance: appropriately dressed Eye Contact: good eye contact Motor Behavior: no abnormal motor movements Speech: normal rate/rhythm/volume of speech Affect: euthymic affect Mood: + anxious mood Thought Process: + circumstantial thought process Thought Content: reality based without delusions Suicidal Thoughts: denies suicidal thoughts, denies suicidal plan and denies suicidal intent Homicidal Thoughts: denies homicidal thoughts Hallucinations: no auditory hallucinations, no visual hallucinations and no tactile hallucinations Cognition: recent memory grossly intact and remote memory grossly intact Estimated Intelligence: average estimated intelligence Insight: + fair insight Judgment: + fair judgement Vital Signs (Past 24 Hours) Last Vital Signs Temp 36.7 C 08/23/25 07:02 Pulse 103 H 08/23/25 07:03 Resp 20 08/23/25 07:02 BP 115/78 08/23/25 07:03 Pulse Ox 97 08/23/25 07:02 O2 Del Method Room Air 08/23/25 07:02 Results & Data ([facility]) Laboratory Results Laboratory Results - last 24 hr 08/23/25 07:59 Valproic Acid Pending Current Inpatient Medications Current Inpatient Medications: Current Inpatient Medications Acetaminophen (Acetaminophen 325 Mg Tab) 650 mg PO Q4H PRN PRN Reason: Headache or Minor Fever Stop: 09/17/25 10:38 Al Hydrox/Mg Hydrox/Simethicone (Aluminum/Magnesium Susp 30 Ml Udc) 30 ml PO Q4H PRN PRN Reason: GI Upset Stop: 09/17/25 10:38 Amlodipine Besylate (Amlodipine Besylate 5 Mg Tab) 2.5 [facility] [place] Stop: 09/18/25 08:59 Last Admin: 08/22/25 08:10 Dose: 2.5 mg Bismuth Subsalicylate (Bismuth Subsalicylate 262 Mg Chew) 2 tab PO Q30M PRN PRN Reason: Loose Stool/Diarrhea Stop: 09/17/25 10:38 Chlordiazepoxide HCl (Chlordiazepoxide Hcl 5 Mg Cap) 10 mg PO BID PRN PRN Reason: alcohol withdrawal symptoms Stop: 09/21/25 13:56 Divalproex Sodium (Divalproex Delay Release 500 Mg Tab) 500 mg PO [facility] Stop: 09/17/25 21:59 Last Admin: 08/22/25 21:21 Dose: 500 mg Divalproex Sodium (Divalproex Delay Release 250 Mg Tabec) 250 mg PO QAM [facility] Stop: 09/18/25 09:14 Last Admin: 08/22/25 08:11 Dose: 250 mg Fluoxetine HCl (Fluoxetine Hcl 20 Mg Cap) 20 mg PO QAM [facility] Stop: 09/21/25 08:59 Last Admin: 08/22/25 08:11 Dose: 20 mg Folic Acid (Folic Acid 1 Mg Tab) 1 mg [facility] [place] Stop: 09/18/25 08:59 Last Admin: 08/22/25 08:11 Dose: 1 mg Gabapentin (Gabapentin 300 Mg Cap) 300 mg PO TID JEANMARIE Stop: 09/20/25 20:59 Last Admin: 08/22/25 21:21 Dose: 300 mg Hydroxyzine HCl (Hydroxyzine Hcl 25 Mg Tab) 50 mg PO HSZ PRN PRN Reason: Insomnia Stop: 09/17/25 10:38 Hydroxyzine HCl (Hydroxyzine Hcl 25 Mg Tab) 25 mg PO Q4H PRN PRN Reason: Anxiety Stop: 09/17/25 10:38 Magnesium Hydroxide (Magnesium Hydroxide Susp 30 Ml Udc) 30 ml PO DAILY PRN PRN Reason: Constipation Stop: 09/17/25 10:38 Nicotine Polacrilex (Nicotine Polacrilex 2 Mg Gum) 1 - 2 piece MT Q2H PRN PRN Reason: smoking cessation Stop: 09/21/25 21:33 Last Admin: 08/23/25 07:43 Dose: 1 piece Pantoprazole Sodium (Pantoprazole 40 Mg Tab) 40 mg PO QAM [facility] Stop: 09/18/25 08:59 Last Admin: 08/22/25 08:18 Dose: Not Given Sodium Chloride (Sodium Chloride 0.65% Na Soln 45 Ml ([place])) 1 - 2 sprays NA PRN PRN PRN Reason: Nasal Dryness/Congestion Stop: 09/17/25 10:38 Thiamine HCl (Thiamine Hcl 100 Mg Tab) 100 mg PO QAM JEANMARIE Stop: 09/18/25 08:59 Last Admin: 08/22/25 08:12 Dose: 100 mg
[2025-08-24 06:27] VITALS: RESP 18; TEMP 97.7
--- NOTE | 2025-08-24 08:42 | Discharge Summary ---
Date of Service August 24, 2025 History of Present Illness Patient with a history of severe childhood trauma, anxiety, and depression. Carries a diagnosis of bipolar 2 disorder. Did not provide clear history of hypomania but described poor tolerance to regular antidepressants. Successfully treated with mood stabilizers in the past. Patient indicated he has a long history of mood fluctuations, impulsivity, episodes of severe depression, and anxiety. His drinking behavior has escalated recently. Patient also TBI and reportedly an Arnold-Chiari malformation with chronic cervical spine pain and headaches. He agreed to a trial of low-dose Depakote. Patient was started on Depakote 250 mg twice daily before transitioning to U and agreed to increase to 250 mg in the morning +500 mg at bedtime today. Although suicidal ideation is passive (no active plan), patient has many risk factors and minimal protective factors. Recommend continuing one-to-one sitter until transferred to . Patient presents cooperative but apprehensive when offered treatment recommendations. He is apologetic for his own worries and anxieties regarding medication. Denied auditory or visual hallucinations. There is no evidence of agitation or aggressive behavior. Physical Exam Vital Signs (Past 24 Hours) Last Vital Signs Temp 36.5 C 08/24/25 06:00 Pulse 85 08/24/25 06:01 Resp 18 08/24/25 06:00 BP 114/67 08/24/25 06:01 Pulse Ox 97 08/24/25 06:00 O2 Del Method Room Air 08/24/25 06:00 Principal Diagnosis Bipolar Affective Disorder Type II, current depressive episode Psychiatric Data See daily stay summary. In short, patient was engaged with the social/therapeutic milieu of the unit, safety was maintained and the patient was cooperative with care. Medication changes included initiation of Depakote for mood stabilization, fluoxetine for depression and anxiety, gabapentin for off-la bel use for anxiety and alcohol use and they tolerated this well. Baseline labs of CBC with diff, LFTs, electrolytes and weight were preformed and WNL. Depakote level at discharge was 43. Recommend repeat CBC with diff, and LFTs at one month. Then CBC with diff, depakote level, and LFTs annually or anytime symptoms arise. A support session was held and safety plan was completed prior to discharge. They participated in safety planning and in discussions about ways to seek support and recognizing warning signs and utilizing coping skills. Reviewed ways to have their safety plan and contacts easily available should thoughts of SI re-emerge in the future. Reviewed importance of seeking emergency care should SI intensify, worsen or should they feel unsafe in the future which they agree to d o. On the day of discharge they stated their mood was "anxious but ready" and remained future-oriented including spending time with family, seeing his friend, getting some fresh air, relaxing and engaging in aftercare appointments for psychiatry and therapy. Day of Discharge Assessment Today the patient voices readiness for discharge. They note improvement in mood and anxiety. They deny thoughts of harm to self or others. Thoughts are organized and they are clinically improved from admission. There is no evidence of psychosis. They improved in the hospital with support and medication adjustments. They agree to take medications as prescribed and keep follow-up appointments. At the time of the discharge they are deemed to be stable and ap propriate for outpatient level of care. They are not deemed to be at imminent risk of harm to self or others. They are aware of emergency and crisis services. Knows to call 911 or go to nearest emergency care center if in a crisis which cannot be handled as an outpatient. Suicide risk assessment: Acute risk is low given improvement in mood and denial of SI, lack of access to lethal means, plan to reduce substance use, some improvement in sleep, hopefulness. Chronic risk is moderate given some non-modifiable risk factors: psychiatric co-morbid diagnoses, impulsivity, mood disorder, childhood trauma, family history of by suicide but also with protective factors including good social support, sense of responsibility to family and social supports, outpatient care in place, positive coping skills, positive problem solving, self-observation. Counseled on ways to reduce acute and chronic risk including engaging with outpatient providers, using safety plan if needed, utilizing supports, taking medication, and using coping skills. Modifiable risk factors of SI, alcohol use and depression were addressed during hospitalization through development of new coping skills, support meeting, safety planning, and medication adjustments. Discharge physical exam: See admission H&P, MSE per above and day of discharge summary. Overall, I spent a total of 35 minutes on this case including meeting with the patient, reviewing the chart, nursing report, multidisciplinary team meeting, discharge orders, anticipatory planning, safety planning, risk assessment and d ocumentation. Transition of Care Transition Of Care Record: was reviewed with the patient Advance Directives Advance Directives Information Provided: Yes Advance Directives: No Mental Health Advance Directive: No Advance Directives on File: No Living Will: No Power of Desktop Support Consultant: No Advance Directives Reason:: Declines as Mental Health Visit. Suicide Risk Level Suicide Risk Level Comments: see assessment above Risk Factors Assessment Male: Yes : Yes Do You Have Access To A Gun?: No Health Problems: Yes Mental Health Diagnoses: Yes Substance Use Disorders: Yes Previous Attempt: No Family History of Suicide: Yes Previous Psychiatric Hospitalization: No Hopelessness: No Protective Factors Assessment Stable Relationships: Yes Supportive Family: Yes Tobacco Cessation at Discharge Tobacco Cessation Medication Prescribed at Discharge: Offered & Prescribed Discharge Data Lab Results 08/21/25 08/23/25 08:00 07:59 WBC 6.90 RBC 4.68 L Hgb 15.7 Hct 43.5 MCV 92.9 MCH 33.5 MCHC 36.1 H RDW Std Deviation 40.7 RDW Coeff of Makenzie 11.9 Plt Count 155 MPV 9.1 L Immature Gran % (Auto) 0.4 Neut % (Auto) 54.7 Lymph % (Auto) 25.5 Real % (Auto) 13.0 Eos % (Auto) 5.2 Baso % (Auto) 1.2 Neut # (Auto) 3.77 Lymph # (Auto) 1.76 Real # (Auto) 0.90 H Eos # (Auto) 0.36 Baso # (Auto) 0.08 Immature Gran # (Auto) 0.03 Sodium 135 L Potassium 4.3 Chloride 101 Carbon Dioxide 30 Anion Gap 4 BUN 11 Creatinine 0.69 Est Cr Clr Drug Dosing 139.4 eGFR 114.87 BUN/Creatinine Ratio 15.9 Glucose 90 Calcium 9.0 Total Bilirubin 0.9 AST 51 H ALT 46 Alkaline Phosphatase 51 Total Protein 6.7 Albumin 4.1 Globulin 2.6 Albumin/Globulin Ratio 1.6 Valproic Acid 43 L Hospital Course (1) Unspecified mood [affective] disorder: (2) Bipolar affect, depressed: (3) ARIANE (generalized anxiety disorder): (4) Social anxiety disorder: (5) Alcohol use disorder: (6) Post traumatic stress disorder (PTSD): Plan 08/24/2025: -He feels safe and desires discharge 08/23/2025: -Librium 10mg TID prn for alcohol withdrawal symptoms 08/22/2025: -Discontinue Librium after HS dose tonight. 08/21/2025: -Decrease Librium to 25mg TID tomorrow -Start fluoxetine 20mg daily tomorrow -Start gabapentin 300mg TID 08/20/25: Continue Librium 50 mg 3 times daily (dose was increased yesterday evening) Continue Depakote 250 mg p.o. every morning +500 milligrams at bedtime. CMP ordered for follow-up of liver enzymes for tomorrow and valproic acid level ordered for 08/25 May benefit from propranolol for anxiety will discuss after labs are received. 08/19/25: Continue AWSS protocol Continue Librium 25 mg p.o. 3 times daily continue Depakote 250 mg p.o. in the morning +500 mg p.o. at nighttime Continue suicide precautions Encourage participation in Unit programming and group activities 08/18/25: The patient was admitted to the [facility] ([facility]) on q15 min checks (behavioral with suicide precautions) for safety. The patient will participate in group, recreational, and milieu therapies and will be offered additional individual and family sessions as clinically appropriate. Start Librium 25 mg p.o.3 times daily Increase Depakote to 250 mg p.o. every morning +500 mg p.o. nightly Continue order for as needed lorazepam and according to AWSS for alcohol withdrawal Mental Health & Subst Abuse Tx Psychiatrist Name of Psychiatrist: [facility]) Psychiatrist's Psychiatric Appointment Comment: Ask for med management during intake appt on 09/16 Therapist Name of Therapist: [facility]) Therapist's Date of Therapist Appointment: 09/16/25 Time of Therapist Appointment: 12:15PM arrival for 1PM appt Therapy Appointment Comment: In person for intake then telehealth. [facility] Post Discharge Appointments Smoking Cessation Counseling Tobacco Cessation Medication Prescribed at Discharge: Offered & Prescribed Contact Information Discharge Discharge Address: Mother's home address: [address] [place] [id number] Discharge Plan Discharge Items Patient Disposition: Home - Self-Care Reason For Visit: UNSPECIFIED DEPRESSIVE DISORDER Discharge Diagnosis: Bipolar Affective Disorder Type II, current depressive episode, alcohol use disorder Activity: Resume your previous activity Non-emergency contact: Psychiatrist and Therapist Call non-emergency contact if: you have any medication questions Follow-up/Referrals: PCP,NO [Primary Care Provider] - Diet: Regular Addtl Attending Provider Instructions: Optional mobile apps we discussed: -Suicide safety plan -Virtual Hope Box SPECIAL CARE INSTRUCTIONS: 1. Follow through with your scheduled aftercare appointments. If unable to keep an appointment, please call to reschedule. 2. Take your medication only as prescribed. Medication should not be changed or stopped without the approval of your doctor. In the event of worsening symptoms or concerns about side effects, contact your doctor immediately. 3. Utilize new healthy coping skills, anger management skills, and stress management skills learned during your hospitalization. Journal feelings and process them with a support person. Identify stressors or situations that may result in relapse, deterioration or inappropriate behaviors and develop a plan to deal with those issues. 4. If your coping skills are ineffective and you are in crisis, contact your outpatient providers for direction. If unable to reach your providers, please call the [facility] CRISIS LINE AT , go to the [facility] walk-in center at [address] [place] [address] A, [place], or go to the closest Emergency Room. 5. Avoid alcohol and un-prescribed drugs. 6. You have been provided with the Mental Health Advance Directives Pamphlet for your review. 7. Your condition is stable for discharge to outpatient level of care, but recovery is an ongoing process. Ifthoughts to harm yourself or others return, follow the safety plan developed during your stay. Planning for a safe return home includes securing weapons. Our treatment team recommends weaponsbe removed from the home until your outpatient provider reassesses your progress. In rare cases where the items themselvescannot be removed, guns and ammunitionshould be secured separatelyand keys stored by a reliable personoutside of the home. If you were admitted on an involuntary commitment, the police or other legal authorities may be involved in this process. AFTERCARE APPOINTMENTS: * Please call your insurance company prior to your scheduled appointment to confirm your aftercare providers are covered. Take your insurance information to your appointments. WHO TO CALL AND WHEN: Medical Emergencies: For questions or emergencies related to your hospital stay, please contact the Inpatient Behavioral Health Unit at [phone]. A psychiatric rn is on-call 22/04 for the Behavioral Health Unit for emergencies At any time you feel your situation is an emergency, you may also call 911 immediately. National Crisis Hotline: 988 Pending Studies at Discharge: No Stand-Alone Forms: My [facility], Smoking Cessation Medications and DC Order Prescriptions: New nicotine (polacrilex) [Nicorette] 2 mg Gum 2 mg MT Q2H PRN (Reason: nicotine cravings) 30 Days Qty: 120 0RF divalproex 250 mg Tablet,Delayed Release (Dr/Ec) 250 mg PO QAM 30 Days Qty: 30 0RF divalproex 500 mg Tablet,Delayed Release (Dr/Ec) 500 mg PO HS 30 Days Qty: 30 0RF fluoxetine 20 mg Capsule 20 mg PO QAM 30 Days Qty: 30 0RF gabapentin 300 mg Capsule 300 mg PO TID 30 Days Qty: 90 0RF hydroxyzine HCl 25 mg Tablet 25 mg PO BID PRN (Reason: anxiety/panic attacks/insomnia) 30 Days Qty: 60 0RF Continued EPINEPHRINE (EPIPEN) 0.3 MG/0.3 ML INJECTION 0.3 mg IM UD PRN (Reason: ALLERGIC REACTION) Qty: 0 Rx Instructions: omeprazole 0 mg PO DAILY folic acid 1 mg Tablet 1 mg PO QAM 30 Days Qty: 30 0RF multivitamin with folic acid [Daily-Hitesh (with folic acid)] 400 mcg Tablet 1 tab PO QAM 30 Days Qty: 30 0RF thiamine HCl (vitamin B1) 100 mg Tablet 100 mg PO QAM 30 Days Qty: 30 0RF Changed amlodipine 2.5 mg tablet 2.5 mg PO DAILY 30 Days Qty: 30 0RF Discontinued divalproex 250 mg Tablet,Delayed Release (Dr/Ec) 250 mg PO BID 30 Days Qty: 60 0RF tizanidine 4 mg Tablet 2 mg PO TID PRN (Reason: muscle spasticity) 5 Days Qty: 10 0RF Discharge Orders: Discharge Order (Routine); Ordered 08/24/25 Ordered By: Kimberly Calles Admission Data Admit Date/Time: 08/18/25 13:06 Attending Provider: Kimberly Calles Admit Provider: Gisell Ramos Primary Care Provider: PCP,NO Other Interventions: Discharge Summary Assessment (RN) Last Done: 08/24/25 11:28 PSY Interdisciplinary Discharge Planning Last Done: 08/24/25 12:36 Coding Level of Care Code 52182 D/C day mgmt > 30 min Diagnoses Unspecified mood [affective] disorder F39 Bipolar affect, depressed F31.30 ARIANE (generalized anxiety disorder) F41.1 Social anxiety disorder F40.10 Alcohol use disorder F10.90 Post traumatic stress disorder (PTSD) F43.10
[2025-08-24 11:34] VITALS: BP 114/67; PULSE 85
== END 2025-08-24 13:34 | disposition home or self-care (01) | DRG 885 ==
LOC: SUATTDRO 13:06 → 3S 13:06